=== PATIENT | female | born 1995 | race Caucasian/White ===

== ENCOUNTER → 2017-07-17 | Outpatient (CLI) | payer OTHER ==
[2017-07-17 11:39] LABS: ALT 28 U/L (9-52); AST 15 U/L (14-36); Albumin 4.2 g/dL (3.5-5.0); Alkaline Phosphatase 65 U/L (38-126); Anion Gap 11 mmol/L; Blood Urea Nitrogen 15 mg/dL (7-17); Calcium 9.6 mg/dL (8.4-10.2); Carbon Dioxide 29 mmol/L (22-30); Chloride 101 mmol/L (98-107); Cholesterol 184 mg/dL (<200); Glucose 236 mg/dL (74-99); HDL Cholesterol 58 mg/dL (40-60); LDL Cholesterol,Calculated 111 mg/dL (0-99); Potassium 4.4 mmol/L (3.5-5.1); Sodium 141 mmol/L (137-145); Total Bilirubin 0.4 mg/dL (0.2-1.3); Total Protein 6.5 g/dL (6.3-8.2); Triglycerides 77 mg/dL (<150)
[2017-07-17 11:55] LABS: T4, Free (Free Thyroxine) 1.09 ng/dL (0.78-2.19)
== END | disposition home or self-care (01) ==
LOC: LABWHC1 10:34
PROVIDERS: ATTEND Internal Medicine
DX: E10.65 Type 1 diabetes mellitus with hyperglycemia (principal); E55.9 Vitamin D deficiency, unspecified
CPT/HCPCS: 36415; 80053; 80061; 82043; 82306; 82570; 83036; 84439; 84443

== ENCOUNTER → 2019-03-10 | Outpatient (CLI) | payer OTHER ==
--- NOTE | 2019-03-11 09:03 | XR ---
EXAMINATION TYPE: XR abdomen 1V DATE OF EXAM: 03/10/2019 COMPARISON: NONE HISTORY: Pain TECHNIQUE: One view abdominal series FINDINGS: The osseous structures are intact. The bowel gas pattern is nonspecific. IUD device seen in the pelv is.. IMPRESSION: 1. Nonspecific abdomen.
== END | disposition home or self-care (01) ==
LOC: RADXRMAIN 17:10
PROVIDERS: ATTEND Nurse Practitioner
DX: R10.84 Generalized abdominal pain (principal)
CPT/HCPCS: 74018

== ENCOUNTER 2019-08-25 13:14 | Emergency (ER) | payer OTHER ==
[2019-08-25 13:20] VITALS: BP 125/86; PULSE 89; RESP 18; TEMP 98.5
[2019-08-25] MEDS ORDERED: LIDOCAINE 1% INJ 10MG/ML (20 ML MDV) SQ STA (13:39)
--- NOTE | 2019-08-25 13:52 | ED ---
Wound/Laceration HPI - General Chief Complaint: Wound/Laceration Stated Complaint: lt hand lac Time Seen by Provider: 08/25/19 13:31 Source: patient, RN notes reviewed Mode of arrival: ambulatory Limitations: no limitations - History of Present Illness Initial Comments: 23-year-old female presents emergency Department with chief complaint of laceration to her left hand second digit. Patient states that she was cutting an onion when it slipped causing a laceration. Patient states she is up-to-date on her tetanus. Patient denies any decreased range of motion no paresthesias. Patient states the bleeding is controlled at this time. - Related Data Home Medications Medication Instructions Recorded Confirmed INSULIN ASPART (NovoLOG) [NovoLOG] 0 unit SQ DIRECTED 01/25/15 04/22/18 Insulin Glargine [Lantus] 40 units SQ 04/22/18 Previous Rx's Medication Instructions Recorded Clindamycin [Cleocin] 450 mg PO Q6H #28 capsule 04/30/15 Allergies Allergy/AdvReac Type Severity Reaction Status Date / Time No Known Allergies Allergy Verified 08/25/19 13:20 Review of Systems ROS Statement: Those systems with pertinent positive or pertinent negative responses have been documented in the HPI. ROS Other: All systems not noted in ROS Statement are negative. Past Medical History Past Medical History: Diabetes Mellitus History of Any Multi-Drug Resistant Organisms: None Reported Past Surgical History: Appendectomy Past Psychological History: No Psychological Hx Reported Smoking Status: Current some day smoker Past Alcohol Use History: Occasional Past Drug Use History: None Reported General Exam Limitations: no limitations General appearance: alert, in no apparent distress Head exam: Present: atraumatic, normocephalic, normal inspection Respiratory exam: Present: normal lung sounds bilaterally. Absent: respiratory distress, wheezes, rales, rhonchi, stridor Cardiovascular Exam: Present: regular rate, normal rhythm, normal heart sounds. Absent: systolic murmur, diastolic murmur, rubs, gallop, clicks Extremities exam: Present: other (Left hand second digit there is a V-shaped laceration 2 cm) Neurological exam: Present: alert, oriented X3, CN II-XII intact, reflexes normal. Absent: motor sensory deficit Skin exam: Present: warm, dry, normal color Course Vital Signs 08/25/19 13:16 Temperature 98.5 F Pulse Rate 89 Respiratory 18 Rate Blood Pressure 125/86 O2 Sat by Pulse 99 Oximetry Procedures - Laceration Laceration #1 Consent Obtained: verbal consent Indication: laceration Site: hand (Left hand second digit) Size (cm): 2 Description: flap, irregular Depth: simple, single layer Anesthetic Used: lidocaine 1%, without epi Anesthesia Technique: local infiltration Amount (mls): 3 Type of Sutures: nylon Size of Sutures: 4-0 Number of Sutures: 3 Technique: simple, interrupted Patient Tolerated Procedure: well, no complications Medical Decision Making - Medical Decision Making 23-year-old female presented for simple laceration to her digit. Patient for range of motion no tendon involvement. Patient laceration was thoroughly cleaned, closed wound Structures given return parameters were given Disposition Clinical Impression: Laceration of finger of left hand Disposition: HOME SELF-CARE Condition: Stable Instructions (If sedation given, give patient instructions): Care For Your Stitches (ED), Finger Laceration (ED) Additional Instructions: Have sutures removed in 10 days.Please return to the Emergency Department if symptoms worsen or any other concerns. Is patient prescribed a controlled substance at d/c from ED?: No Referrals: [facility] [Primary Care Provider] - 1-2 days Time of Disposition: 13:52
== END 2019-08-25 14:05 | disposition home or self-care (01) ==
LOC: EC 13:14
DX: S61.211A Laceration without foreign body of left index finger without damage to nail, initial encounter (principal); E11.9 Type 2 diabetes mellitus without complications; F17.200 Nicotine dependence, unspecified, uncomplicated; Z79.4 Long term (current) use of insulin; W27.4XXA Contact with kitchen utensil, initial encounter
CPT/HCPCS: 12001; 99282; J2001

== ENCOUNTER → 2021-03-28 | Outpatient (CLI) | payer OTHER ==
[2021-03-28 18:18] LABS: Chol/HDL Ratio 3.64 Ratio; Glucose 147 mg/dL (70-110)
[2021-03-29 10:07] LABS: C-Peptide 0.17 ng/mL (0.81-3.85)
== END | disposition home or self-care (01) ==
LOC: LABWHC1 14:19
PROVIDERS: ATTEND Family Medicine
DX: E55.9 Vitamin D deficiency, unspecified (principal); E10.65 Type 1 diabetes mellitus with hyperglycemia; L68.0 Hirsutism; R53.83 Other fatigue
CPT/HCPCS: 36415; 80061; 82043; 82306; 82570; 82947; 83036; 84402; 84403; 84439; 84443; 84681

== ENCOUNTER 2021-07-30 05:36 | Inpatient (IN) | payer OTHER ==
[2021-07-30] MEDS ORDERED: SODIUM CHLORIDE 0.9% 2,000 ML IV STA (06:15)
[2021-07-30] MEDS ORDERED: ONDANSETRON 4 MG/2 ML VIAL IVP STA (06:15)
--- NOTE | 2021-07-30 06:25 | ED ---
Nausea/Vomiting/Diarrhea HPI - General Source: patient, RN notes reviewed Mode of arrival: ambulatory Limitations: no limitations <Yohannes Mcgovern - Last Filed: 07/30/21 07:41> <Broderick Deleon - Last Filed: 07/30/21 08:05> - General Chief complaint: Nausea/Vomiting/Diarrhea Stated complaint: Vomiting Time Seen by Provider: 07/30/21 06:00 - History of Present Illness Initial comments: This a 25 year old female presents emergency from chief complaint nausea vomiting bodyaches fever. Patient states symptoms started to 3 days ago. Patient states she is known diabetic on insulin she has not checked her blood sugar recently. Patient states she has brisk nausea vomiting complains of body aches are diffuse in nature no localized abdominal pain. No chest pain or shortness of breath. She has mild nasal congestion, cough. (Yohannes Mcgovern) - Related Data Home Medications Medication Instructions Recorded Confirmed INSULIN ASPART (NovoLOG) [NovoLOG] 0 unit SQ DIRECTED 01/25/15 04/22/18 Insulin Glargine [Lantus] 40 units SQ 04/22/18 Previous Rx's Medication Instructions Recorded Clindamycin [Cleocin] 450 mg PO Q6H #28 capsule 04/30/15 Allergies Allergy/AdvReac Type Severity Reaction Status Date / Time No Known Allergies Allergy Verified 07/30/21 05:42 Review of Systems ROS Other: All systems not noted in ROS Statement are negative. <Yohannes Mcgovern - Last Filed: 07/30/21 07:41> ROS Other: All systems not noted in ROS Statement are negative. <Broderick Deleon - Last Filed: 07/30/21 08:05> ROS Statement: Those systems with pertinent positive or pertinent negative responses have been documented in the HPI. Past Medical History Past Medical History: Diabetes Mellitus History of Any Multi-Drug Resistant Organisms: None Reported Past Surgical History: Appendectomy Past Psychological History: No Psychological Hx Reported Smoking Status: Current some day smoker Past Alcohol Use History: Occasional Past Drug Use History: None Reported <Yohannes Mcgovern - Last Filed: 07/30/21 07:41> General Exam Limitations: no limitations General appearance: alert, in no apparent distress Head exam: Present: atraumatic, normocephalic, normal inspection Eye exam: Present: normal appearance, PERRL, EOMI. Absent: scleral icterus, conjunctival injection, periorbital swelling ENT exam: Present: normal exam, mucous membranes moist Neck exam: Present: normal inspection, full ROM. Absent: tenderness, meningismus, lymphadenopathy Respiratory exam: Present: normal lung sounds bilaterally. Absent: respiratory distress, wheezes, rales, rhonchi, stridor Cardiovascular Exam: Present: regular rate, normal rhythm, normal heart sounds. Absent: systolic murmur, diastolic murmur, rubs, gallop, clicks GI/Abdominal exam: Present: soft, tenderness, normal bowel sounds. Absent: distended, guarding, rebound, rigid Neurological exam: Present: alert, oriented X3 Skin exam: Present: warm, dry, intact, normal color. Absent: rash <Yohannes Mcgovern - Last Filed: 07/30/21 07:41> Course Vital Signs 07/30/21 07/30/21 05:42 08:00 Temperature 97.9 F Pulse Rate 107 H 104 H Respiratory 18 18 Rate Blood Pressure 117/72 132/75 O2 Sat by Pulse 98 100 Oximetry Medical Decision Making - Lab Data Result diagrams: 07/30/21 06:40 07/30/21 06:40 <Yohannes Mcgovern - Last Filed: 07/30/21 07:41> - Lab Data Result diagrams: 07/30/21 06:40 07/30/21 06:40 <Broderick Deleon - Last Filed: 07/30/21 08:05> - Medical Decision Making 25-year-old female presented for nausea vomiting. Patient's found to have glucose of 345, bicarb less than 5. Patient has pH of 6.90. Patient was started on insulin drip, IV fluid bolus, maintenance fluids. Patient will be admitted to ICU for close monitoring treatment of DKA. (Yohannes Mcgovern) Patient also examined and evaluated by myself, Dr. Deleon. Patient resting comfortably in bed. Labs and ABG reviewed. Patient updated. Case was discussed with Dr. Patton who will admit to ICU. I do agree with PA findings. This includes diagnostic interpretation and treatment plan. (Broderick Deleon) - Lab Data Lab Results 07/30/21 07/30/21 07/30/21 Range/Units 06:40 06:40 06:40 WBC 6.9 (3.8-10.6) k/uL RBC 5.29 (3.80-5.40) m/uL Hgb 16.3 H (11.4-16.0) gm/dL Hct 53.1 H (34.0-46.0) % MCV 100.4 H (80.0-100.0) fL MCH 30.9 (25.0-35.0) pg MCHC 30.7 L (31.0-37.0) g/dL RDW 12.1 (11.5-15.5) % Plt Count 221 (150-450) k/uL MPV 9.2 Neutrophils % 68 % Lymphocytes % 19 % Monocytes % 8 % Eosinophils % 0 % Basophils % 2 % Neutrophils # 4.7 (1.3-7.7) k/uL Lymphocytes # 1.3 (1.0-4.8) k/uL Monocytes # 0.5 (0-1.0) k/uL Eosinophils # 0.0 (0-0.7) k/uL Basophils # 0.2 (0-0.2) k/uL Sodium 133 L (137-145) mmol/L Potassium 5.1 (3.5-5.1) mmol/L Chloride 101 (98-107) mmol/L Carbon Dioxide <5 L* (22-30) mmol/L Anion Gap mmol/L BUN 11 (7-17) mg/dL Creatinine 0.96 (0.52-1.04) mg/dL Est GFR (CKD-EPI)AfAm >90 (>60 ml/min/1.73 sqM) Est GFR (CKD-EPI)NonAf 82 (>60 ml/min/1.73 sqM) Glucose 345 H (74-99) mg/dL Calcium 9.0 (8.4-10.2) mg/dL Total Bilirubin 0.5 (0.2-1.3) mg/dL AST 21 (14-36) U/L ALT 15 (4-34) U/L Alkaline Phosphatase 122 (38-126) U/L Total Protein 7.9 (6.3-8.2) g/dL Albumin 5.0 (3.5-5.0) g/dL Amylase 39 (30-110) U/L Lipase 50 (23-300) U/L Acetone, Qual Positive (Negative) Coronavirus (PCR) (Not Detectd) Influenza Type A RNA Not Detected (Not Detectd) Influenza Type B (PCR) Not Detected (Not Detectd) 07/30/21 Range/Units 06:40 WBC (3.8-10.6) k/uL RBC (3.80-5.40) m/uL Hgb (11.4-16.0) gm/dL Hct (34.0-46.0) % MCV (80.0-100.0) fL MCH (25.0-35.0) pg MCHC (31.0-37.0) g/dL RDW (11.5-15.5) % Plt Count (150-450) k/uL MPV Neutrophils % % Lymphocytes % % Monocytes % % Eosinophils % % Basophils % % Neutrophils # (1.3-7.7) k/uL Lymphocytes # (1.0-4.8) k/uL Monocytes # (0-1.0) k/uL Eosinophils # (0-0.7) k/uL Basophils # (0-0.2) k/uL Sodium (137-145) mmol/L Potassium (3.5-5.1) mmol/L Chloride (98-107) mmol/L Carbon Dioxide (22-30) mmol/L Anion Gap mmol/L BUN (7-17) mg/dL Creatinine (0.52-1.04) mg/dL Est GFR (CKD-EPI)AfAm (>60 ml/min/1.73 sqM) Est GFR (CKD-EPI)NonAf (>60 ml/min/1.73 sqM) Glucose (74-99) mg/dL Calcium (8.4-10.2) mg/dL Total Bilirubin (0.2-1.3) mg/dL AST (14-36) U/L ALT (4-34) U/L Alkaline Phosphatase (38-126) U/L Total Protein (6.3-8.2) g/dL Albumin (3.5-5.0) g/dL Amylase (30-110) U/L Lipase (23-300) U/L Acetone, Qual (Negative) Coronavirus (PCR) Not Detected (Not Detectd) Influenza Type A RNA (Not Detectd) Influenza Type B (PCR) (Not Detectd) Critical Care Time Critical Care Time: Yes Total Critical Care Time: 35 <Dedoe,Yohannes M - Last Filed: 07/30/21 07:41> Disposition Time of Disposition: 07:35 <Yohannes Mcgovern - Last Filed: 07/30/21 07:41> <Broderick Deleon - Last Filed: 07/30/21 08:05> Clinical Impression: DKA (diabetic ketoacidosis) Disposition: ADMITTED IP TO THIS HOSP Condition: Serious
[2021-07-30] MEDS ORDERED: KETOROLAC 15 MG/ML 1 ML VIAL IVP STA ×2 (06:27→09:57)
[2021-07-30 06:50] LABS: Basophils # (A) 0.2 k/uL (0-0.2); Basophils % (A) 2 %; Eosinophils % (A) 0 %; HCT 53.1 % (34.0-46.0); HGB 16.3 gm/dL (11.4-16.0); Lymphocytes # (A) 1.3 k/uL (1.0-4.8); Lymphocytes % (A) 19 %; MCH 30.9 pg (25.0-35.0); MCHC 30.7 g/dL (31.0-37.0); MCV 100.4 fL (80.0-100.0); Mean Platelet Volume 9.2; Monocytes # (A) 0.5 k/uL (0-1.0); Monocytes % (A) 8 %; Neutrophils # (A) 4.7 k/uL (1.3-7.7); Neutrophils % (A) 68 %; Platelet Count 221 k/uL (150-450); RBC 5.29 m/uL (3.80-5.40); RDW 12.1 % (11.5-15.5); WBC 6.9 k/uL (3.8-10.6)
[2021-07-30 07:04] LABS: ALT 15 U/L (4-34); AST 21 U/L (14-36); African American GFR (CKD) >90 (>60 ml/min/1.73 sqM); Alkaline Phosphatase 122 U/L (38-126); Amylase 39 U/L (30-110); Blood Urea Nitrogen 11 mg/dL (7-17); Chloride 101 mmol/L (98-107); Glucose 345 mg/dL (74-99); Lipase 50 U/L (23-300); Non-African American GFR(CKD) 82 (>60 ml/min/1.73 sqM); Potassium 5.1 mmol/L (3.5-5.1); Sodium 133 mmol/L (137-145); Total Bilirubin 0.5 mg/dL (0.2-1.3); Total Protein 7.9 g/dL (6.3-8.2)
[2021-07-30 07:06] LABS: Carbon Dioxide <5 mmol/L (22-30)
[2021-07-30 07:39] LABS: Glucose,Whole Blood 381 mg/dL (75-99)
[2021-07-30] MEDS: INSULIN REGULAR 100 UNIT in SODIUM CHLORIDE 0.9% 100 ML IV SCH ×2 (07:42→16:13)
[2021-07-30 07:46] LABS: Allen Test Performed? Yes
[2021-07-30 08:14] LABS: Amorphous Sediment,Urine Rare /hpf; Appearance,Urine Clear (Clear); Bacteria,Urine Occasional /hpf; Bilirubin,Urine Negative (Negative); Blood,Urine Small (Negative); Color,Urine Colorless; Glucose,Urine (UA) 4+ (Negative); Hyaline Casts,Urine 3 /lpf (0-2); Leukocyte Esterase,Urine Negative (Negative); Mucus,Urine Rare /hpf; Nitrite,Urine Negative (Negative); PH, Urine 5.5 (5.0-8.0); Protein,Urine 2+ (Negative); RBC,Urine 2 /hpf (0-5); Specific Gravity,Urine 1.022 (1.001-1.035); Squamous Epithelial Cell,Urine 2 /hpf (0-4); Urobilinogen,Urine <2.0 mg/dL (<2.0); WBC,Urine 2 /hpf (0-5)
[2021-07-30 08:17] LABS: Ketones,Urine 4+ (Negative)
[2021-07-30 09:03] LABS: Glucose,Whole Blood 278 mg/dL (75-99)
--- NOTE | 2021-07-30 09:04 | P.CNPUL ---
History of Present Illness Consult date: 07/30/21 Chief complaint: Generalized weakness, hyperglycemia History of present illness: 25-year-old female patient, came into the emergency department with nausea and emesis and body aches and fever. The patient has been having symptoms for the past 3 days. The patient is diabetic and she is maintained on Lantus insulin 40 units along with NovoLog sliding scale coverage. She has not checked her blood sugars recently. Immediately, it emergency, the patient was found to be in DKA. She was afebrile and she was hemodynamically stable. The electrolytes showed a sugar of 345, serum bicarb level less than 5 and the sodium level was at 133. The patient's anion gap was 27. The liver function tests were essentially within normal limits. Sodium level was at 133 with a potassium level of 5.1. UA showed +2 protein, +4 glucose, plus for ketones, and the serum acetone was positive. The white cell count was at 6.9 with a hemoglobin of 16.8 and a platelet count of 221. COVID 19 testing was negative. Influenza screen was negative. Chest x-ray was not done. EKG was not done. The patient was given IV fluids and the patient has already received 1 L bolus of normal saline. We are going to immediately given a second liter and the patient will be maintained on normal saline at the rate of 200 mL an hour. She is currently on insulin drip at 6 units an hour. She is hemodynamically stable. She is afebrile. She is communicating. She is awake. The patient has not taken insulin for around 2 days. She missed her insulin as the patient was having nausea and emesis. Currently the abdomen is soft and she doesn't have any abdominal pain or tenderness. LFTs are within normal limits. Amylase and lipase are also within normal limits. Review of Systems Constitutional: Reports daytime sleepiness, Reports weakness Eyes: denies as per HPI, denies blurred vision, denies bulging eye, denies decreased vision, denies diplopia, denies discharge, denies dry eye, denies irr itation, denies itching, denies pain, denies photophobia, denies loss of peripheral vision, denies loss of vision, denies tunnel vision/blind spots Ears: deny: decreased hearing, ear discharge, earache, tinnitus Ears, nose, mouth and throat: Reports as per HPI Breasts: absent: as per HPI, change in shape, gynecomastia, masses, nipple discharge, pain, skin changes, swelling Cardiovascular: Reports as per HPI Respiratory: Reports as per HPI Gastrointestinal: Reports as per HPI, Reports nausea, Reports vomiting Genitourinary: Reports as per HPI Menstruation: Reports as per HPI Musculoskeletal: absent: ankle pain, ankle stiffness, ankle swelling Integumentary: Reports as per HPI Neurological: Reports as per HPI Psychiatric: Reports as per HPI Endocrine: Reports high blood sugars Hematologic/Lymphatic: Reports as per HPI Allergic/Immunologic: Reports as per HPI Past Medical History Past Medical History: Diabetes Mellitus History of Any Multi-Drug Resistant Organisms: None Reported Past Surgical History: Appendectomy Past Psychological History: No Psychological Hx Reported Smoking Status: Current some day smoker Past Alcohol Use History: Occasional Past Drug Use History: None Reported Medications and Allergies Home Medications Medication Instructions Recorded Confirmed Type INSULIN ASPART (NovoLOG) [NovoLOG] 0 unit SQ DIRECTED 01/25/15 04/22/18 History Clindamycin [Cleocin] 450 mg PO Q6H #28 capsule 04/30/15 05/03/15 Rx Insulin Glargine [Lantus] 40 units SQ 04/22/18 History Allergies Allergy/AdvReac Type Severity Reaction Status Date / Time No Known Allergies Allergy Verified 07/30/21 05:42 Physical Exam Vitals: Vital Signs Temp Pulse Resp BP Pulse Ox 07/30/21 08:00 104 H 18 132/75 100 07/30/21 05:42 97.9 F 107 H 18 117/72 98 Intake and Output 07/29/21 07/30/21 07/30/21 22:59 06:59 14:59 Other: Weight 65.771 kg Gen. appearance the patient is calm and comfortable she is currently on room air oxygen. Slightly tachypneic. The patient appeared well nourished and normally developed. Vital signs as do cumented. Head exam is unremarkable. No scleral icterus or corneal arcus noted. Neck is without jugular venous distension, thyromegaly, or carotid bruits. Carotid upstrokes are brisk bilaterally. Lungs are clear to auscultation and percussion. Cardiac exam reveals the PMI to be normally sized and situated. Rhythm is regular. First and second heart sounds normal. No murmurs, rubs or gallops. Abdominal exam reveals normal bowel sounds, no masses, no organomegaly and no aortic enlargement. Extremities are nonedematous and both femoral and pedal pulses are normal.Examination of the skin revealed no evidence of significant rashes, suspicious appearing nevi or other concerning lesions.Neurologically, the patient is awake and alert and the patient does not have any focal neurological deficit. Cranial nerves are essentially intact. Results - Laboratory Findings CBC and BMP: 07/30/21 06:40 07/30/21 06:40 Abnormal lab findings: Abnormal Labs 07/30/21 07/30/21 07/30/21 06:40 06:40 07:37 Hgb 16.3 H Hct 53.1 H MCV 100.4 H MCHC 30.7 L Sodium 133 L Carbon Dioxide <5 L* Glucose 345 H POC Glucose (mg/dL) 381 H Urine Protein Urine Glucose (UA) Urine Ketones Urine Blood Amorphous Sediment Urine Bacteria Hyaline Casts Urine Mucus 07/30/21 08:01 Hgb Hct MCV MCHC Sodium Carbon Dioxide Glucose POC Glucose (mg/dL) Urine Protein 2+ H Urine Glucose (UA) 4+ H Urine Ketones 4+ H Urine Blood Small H Amorphous Sediment Rare H Urine Bacteria Occasional H Hyaline Casts 3 H Urine Mucus Rare H Assessment and Plan Plan: Diabetic ketoacidosis Severe anion gap metabolic acidosis Type 1 diabetes mellitus maintained on Lantus insulin now patient basis Generalized weakness and dehydration secondary to above Nausea and emesis without any acute intra-abdominal pathology. LFTs are normal. Amylase and lipase are within normal limits and the patient has a benign abdominal exam Plan Complete the second liter normal saline bolus to be followed by normal saline infusion 200 mL an hour Insulin drip at 6 units an hour and follow the DKA protocol Hourly blood sugar monitoring Electrolytes every 4 hours IV Protonix IV Zofran for nausea Heparin subcu for DVT prophylaxis Check hemoglobin A1c Chest x-ray UDS We'll continue to follow.
[2021-07-30 09:08] LABS: ABG PO2 133 mmHg (83-108)
[2021-07-30] MEDS ORDERED: ONDANSETRON 4 MG/2 ML VIAL IVP PRN (09:19)
[2021-07-30 09:39] LABS: ABG Oxygen Saturation 97.5 % (94-97)
[2021-07-30] MEDS: HEPARIN SODIUM,PORCINE/PF 5,000 UNIT/0.5 ML SYRINGE SQ SCH ×2 (09:55→17:16)
[2021-07-30] MEDS: SODIUM CHLORIDE 0.9% 1,000 ML IV SCH ×2 (09:55→10:13)
[2021-07-30] MEDS: PANTOPRAZOLE 40 MG/10 ML VIAL IVP SCH ×2 (09:55→20:31)
--- NOTE | 2021-07-30 09:55 | XR ---
EXAMINATION TYPE: XR chest 1V portable DATE OF EXAM: 07/30/2021 COMPARISON: None INDICATION: Kidney TECHNIQUE: Single frontal view of the chest is obtained. FINDINGS: The heart size is normal. The pulmonary vasculature is normal. The lungs are clear. IMPRESSION: 1. No acute pulmonary process.
[2021-07-30 10:01] LABS: Glucose,Whole Blood 232 mg/dL (75-99)
[2021-07-30] MEDS: D5-0.45% NACL WITH KCL 20MEQ/L 1,000 ML IV SCH ×3 (10:15→22:13)
--- NOTE | 2021-07-30 10:40 | P.HPIM ---
History of Present Illness H&P Date: 07/30/21 Chief Complaint: Nausea Patient is a 25-year-old female who comes into the hospital with chief complaints of body aches as well as nausea. Patient reports that she's been having symptoms for the past 3 days. She reports that she has been sleeping all day for the past 2 days and has not taken any of her insulin. Patient does have type 1 diabetes and currently is on home dose of Lantus 40 units along with NovoLog sliding scale. Patient has not been checking her blood sugars and has not been taking her insulin. Patient was admitted to the hospital and found to be in severe DKA. Patient is being admitted to the intensive care unit for management. Patient denies any complaints of shortness of breath cough fevers chills. She does complain of generalized nausea as well as some emesis. No reports of hematochezia hematemesis Review of Systems A full complete 12 point review of system was conducted and pertinent positives and negatives noted in HPI Past Medical History Past Medical History: Diabetes Mellitus History of Any Multi-Drug Resistant Organisms: None Reported Past Surgical History: Appendectomy Past Psychological History: No Psychological Hx Reported Smoking Status: Current some day smoker Past Alcohol Use History: Occasional Past Drug Use History: None Reported Medications and Allergies Home Medications Medication Instructions Recorded Confirmed Type INSULIN ASPART (NovoLOG) [NovoLOG] 0 unit SQ DIRECTED 01/25/15 04/22/18 History Clindamycin [Cleocin] 450 mg PO Q6H #28 capsule 04/30/15 05/03/15 Rx Insulin Glargine [Lantus] 40 units SQ 04/22/18 History Allergies Allergy/AdvReac Type Severity Reaction Status Date / Time No Known Allergies Allergy Verified 07/30/21 05:42 Physical Exam Osteopathic Statement: *. No significant issues noted on an osteopathic structural exam other than those noted in the History and Physical/Consult. Vitals: Vital Signs Temp Pulse Resp BP Pulse Ox 07/30/21 10:00 93 17 115/82 99 07/30/21 09:00 98.3 F 103 H 15 144/91 99 07/30/21 08:57 98 07/30/21 08:00 104 H 18 132/75 100 07/30/21 05:42 97.9 F 107 H 18 117/72 98 Intake and Output 07/29/21 07/30/2122 22:59 06:59 14:59 Intake Total 1999 Balance 1999 Intake: IV 1999 Sodium Chloride 0.9% 2, 2000 000 ml @ 999 mls/hr IV . Q2H1M STA Rx#:[id number] Other: # Voids 0 Weight 65.771 kg - Constitutional General appearance: average body habitus, no acute distress - EENT Eyes: PERRLA Ears: bilateral: normal - Respiratory Respiratory: negative: CTA - Cardiovascular Rhythm: regular Heart sounds: normal: S1, S2 - Gastrointestinal General gastrointestinal: normal bowel sounds, soft Results CBC & Chem 7: 07/30/21 06:40 07/30/21 06:40 Labs: Abnormal Lab Results - Last 24 Hours (Table) 07/30/21 07/30/21 07/30/21 Range/Units 06:40 06:40 07:33 Hgb 16.3 H (11.4-16.0) gm/dL Hct 53.1 H (34.0-46.0) % MCV 100.4 H (80.0-100.0) fL MCHC 30.7 L (31.0-37.0) g/dL ABG pH 6.98 L* (7.35-7.45) ABG pCO2 <15 L* (35-45) mmHg ABG pO2 133 H (83-108) mmHg ABG O2 Saturation 97.5 H (94-97) % Sodium 133 L (137-145) mmol/L Carbon Dioxide <5 L* (22-30) mmol/L Glucose 345 H (74-99) mg/dL POC Glucose (mg/dL) (75-99) mg/dL Urine Protein (Negative) Urine Glucose (UA) (Negative) Urine Ketones (Negative) Urine Blood (Negative) Amorphous Sediment (None) /hpf Urine Bacteria (None) /hpf Hyaline Casts (0-2) /lpf Urine Mucus (None) /hpf 07/30/21 07/30/21 07/30/21 Range/Units 07:37 08:01 09:00 Hgb (11.4-16.0) gm/dL Hct (34.0-46.0) % MCV (80.0-100.0) fL MCHC (31.0-37.0) g/dL ABG pH (7.35-7.45) ABG pCO2 (35-45) mmHg ABG pO2 (83-108) mmHg ABG O2 Saturation (94-97) % Sodium (137-145) mmol/L Carbon Dioxide (22-30) mmol/L Glucose (74-99) mg/dL POC Glucose (mg/dL) 381 H 278 H (75-99) mg/dL Urine Protein 2+ H (Negative) Urine Glucose (UA) 4+ H (Negative) Urine Ketones 4+ H (Negative) Urine Blood Small H (Negative) Amorphous Sediment Rare H (None) /hpf Urine Bacteria Occasional H (None) /hpf Hyaline Casts 3 H (0-2) /lpf Urine Mucus Rare H (None) /hpf 07/30/21 Range/Units 09:59 Hgb (11.4-16.0) gm/dL Hct (34.0-46.0) % MCV (80.0-100.0) fL MCHC (31.0-37.0) g/dL ABG pH (7.35-7.45) ABG pCO2 (35-45) mmHg ABG pO2 (83-108) mmHg ABG O2 Saturation (94-97) % Sodium (137-145) mmol/L Carbon Dioxide (22-30) mmol/L Glucose (74-99) mg/dL POC Glucose (mg/dL) 232 H (75-99) mg/dL Urine Protein (Negative) Urine Glucose (UA) (Negative) Urine Ketones (Negative) Urine Blood (Negative) Amorphous Sediment (None) /hpf Urine Bacteria (None) /hpf Hyaline Casts (0-2) /lpf Urine Mucus (None) /hpf Assessment and Plan (1) DKA (diabetic ketoacidosis) Current Visit: Yes Status: Acute Code(s): E11.10 - TYPE 2 DIABETES MELLITUS WITH KETOACIDOSIS WITHOUT COMA SNOMED Code(s): 121175547 Plan: DKA Type 1 diabetes mellitus Severe anion gap metabolic acidosis Patient presents to the hospital with severe anion gap metabolic acidosis of a bicarb less than 5. Patient's ABG reveals a pH of 6.98. Patient alert and responsive and answering questions appropriately. Patient was started on DKA protocol including insulin gtt. and IV fluids. Patient is being admitted to the intensive care unit. -Insulin gtt. -IV fluids -Continue every 4 electrolytes, hourly POC, Nausea/emesis -Likely secondary to DKA. LFTs are within normal. -Continue with supportive care GI DVT prophylaxis: Heparin subcu, Protonix Disposition: Patient is being admitted to the intensive care unit with consultation to ICU care team.
[2021-07-30 10:54] LABS: Glucose,Whole Blood 238 mg/dL (75-99)
[2021-07-30 12:04] LABS: African American GFR (CKD) >90 (>60 ml/min/1.73 sqM); Blood Urea Nitrogen 11 mg/dL (7-17); Chloride 109 mmol/L (98-107); Glucose 227 mg/dL (74-99); Non-African American GFR(CKD) >90 (>60 ml/min/1.73 sqM); Phosphorus 3.5 mg/dL (2.5-4.5); Potassium 4.9 mmol/L (3.5-5.1); Sodium 135 mmol/L (137-145)
[2021-07-30 12:05] LABS: Carbon Dioxide <5 mmol/L (22-30)
[2021-07-30 12:05] LABS: Glucose,Whole Blood 240 mg/dL (75-99)
[2021-07-30 13:13] LABS: Glucose,Whole Blood 178 mg/dL (75-99)
[2021-07-30 14:29] LABS: Glucose,Whole Blood 215 mg/dL (75-99)
[2021-07-30 15:05] LABS: African American GFR (CKD) >90 (>60 ml/min/1.73 sqM); Anion Gap 12 mmol/L; Blood Urea Nitrogen 8 mg/dL (7-17); Carbon Dioxide 11 mmol/L (22-30); Chloride 110 mmol/L (98-107); Glucose 189 mg/dL (74-99); Non-African American GFR(CKD) >90 (>60 ml/min/1.73 sqM); Phosphorus 2.1 mg/dL (2.5-4.5); Potassium 4.7 mmol/L (3.5-5.1); Sodium 133 mmol/L (137-145)
[2021-07-30 15:13] LABS: Glucose,Whole Blood 187 mg/dL (75-99)
[2021-07-30 16:14] LABS: Glucose,Whole Blood 167 mg/dL (75-99)
[2021-07-30 17:20] LABS: Glucose,Whole Blood 165 mg/dL (75-99)
[2021-07-30 18:42] LABS: Urine Alcohol Negative (Negative); Urine Barbiturate Negative (Negative); Urine Cocaine Negative (Negative); Urine Methadone Negative (Negative); Urine Opiates Negative (Negative); Urine Phencyclidine Negative (Negative)
[2021-07-30 18:42] LABS: Glucose,Whole Blood 127 mg/dL (75-99)
[2021-07-30 18:55] LABS: ALT 12 U/L (4-34); AST 19 U/L (14-36); African American GFR (CKD) >90 (>60 ml/min/1.73 sqM); Albumin 3.7 g/dL (3.5-5.0); Alkaline Phosphatase 81 U/L (38-126); Anion Gap 9 mmol/L; Blood Urea Nitrogen 7 mg/dL (7-17); Calcium 8.1 mg/dL (8.4-10.2); Carbon Dioxide 14 mmol/L (22-30); Chloride 110 mmol/L (98-107); Glucose 142 mg/dL (74-99); Non-African American GFR(CKD) >90 (>60 ml/min/1.73 sqM); Potassium 4.2 mmol/L (3.5-5.1); Sodium 133 mmol/L (137-145); Total Bilirubin 0.3 mg/dL (0.2-1.3); Total Protein 6.2 g/dL (6.3-8.2)
[2021-07-30 19:57] LABS: Glucose,Whole Blood 103 mg/dL (75-99)
[2021-07-30 21:04] LABS: Glucose,Whole Blood 160 mg/dL (75-99)
[2021-07-30 22:18] LABS: Glucose,Whole Blood 140 mg/dL (75-99)
[2021-07-30 22:51] LABS: ALT 11 U/L (4-34); AST 20 U/L (14-36); African American GFR (CKD) >90 (>60 ml/min/1.73 sqM); Albumin 3.7 g/dL (3.5-5.0); Alkaline Phosphatase 85 U/L (38-126); Anion Gap 12 mmol/L; Blood Urea Nitrogen 7 mg/dL (7-17); Calcium 8.3 mg/dL (8.4-10.2); Carbon Dioxide 14 mmol/L (22-30); Chloride 108 mmol/L (98-107); Glucose 140 mg/dL (74-99); Non-African American GFR(CKD) >90 (>60 ml/min/1.73 sqM); Potassium 4.2 mmol/L (3.5-5.1); Sodium 134 mmol/L (137-145); Total Bilirubin 0.3 mg/dL (0.2-1.3); Total Protein 6.3 g/dL (6.3-8.2)
[2021-07-30 23:02] LABS: Glucose,Whole Blood 156 mg/dL (75-99)
[2021-07-31 00:05] LABS: Glucose,Whole Blood 173 mg/dL (75-99)
[2021-07-31] MEDS: HEPARIN SODIUM,PORCINE/PF 5,000 UNIT/0.5 ML SYRINGE SQ SCH ×4 (00:05→23:16)
[2021-07-31 01:12] LABS: Glucose,Whole Blood 215 mg/dL (75-99)
[2021-07-31 02:11] LABS: Glucose,Whole Blood 220 mg/dL (75-99)
[2021-07-31 02:16] LABS: ALT 10 U/L (4-34); AST 20 U/L (14-36); African American GFR (CKD) >90 (>60 ml/min/1.73 sqM); Albumin 3.4 g/dL (3.5-5.0); Alkaline Phosphatase 72 U/L (38-126); Anion Gap 9 mmol/L; Blood Urea Nitrogen 6 mg/dL (7-17); Calcium 8.1 mg/dL (8.4-10.2); Carbon Dioxide 13 mmol/L (22-30); Chloride 110 mmol/L (98-107); Glucose 225 mg/dL (74-99); Non-African American GFR(CKD) >90 (>60 ml/min/1.73 sqM); Sodium 132 mmol/L (137-145); Total Bilirubin 0.3 mg/dL (0.2-1.3); Total Protein 5.8 g/dL (6.3-8.2)
[2021-07-31 03:05] LABS: Glucose,Whole Blood 235 mg/dL (75-99)
[2021-07-31 04:07] LABS: Glucose,Whole Blood 252 mg/dL (75-99)
[2021-07-31 05:01] LABS: Glucose,Whole Blood 257 mg/dL (75-99)
[2021-07-31] MEDS: D5-0.45% NACL WITH KCL 20MEQ/L 1,000 ML IV SCH ×3 (05:01→14:53)
[2021-07-31 05:56] LABS: Glucose,Whole Blood 224 mg/dL (75-99)
[2021-07-31 06:51] LABS: Glucose,Whole Blood 222 mg/dL (75-99)
[2021-07-31 07:42] LABS: HCT 41.8 % (34.0-46.0); MCH 31.6 pg (25.0-35.0); MCHC 33.5 g/dL (31.0-37.0); Mean Platelet Volume 8.2; Platelet Count 178 k/uL (150-450); RBC 4.43 m/uL (3.80-5.40); RDW 12.9 % (11.5-15.5); WBC 3.6 k/uL (3.8-10.6)
[2021-07-31 07:58] LABS: ALT 11 U/L (4-34); AST 20 U/L (14-36); African American GFR (CKD) >90 (>60 ml/min/1.73 sqM); Albumin 3.4 g/dL (3.5-5.0); Alkaline Phosphatase 81 U/L (38-126); Anion Gap 8 mmol/L; Blood Urea Nitrogen 5 mg/dL (7-17); Calcium 8.3 mg/dL (8.4-10.2); Carbon Dioxide 16 mmol/L (22-30); Chloride 110 mmol/L (98-107); Glucose 198 mg/dL (74-99); Non-African American GFR(CKD) >90 (>60 ml/min/1.73 sqM); Potassium 3.8 mmol/L (3.5-5.1); Sodium 134 mmol/L (137-145); Total Bilirubin 0.3 mg/dL (0.2-1.3); Total Protein 5.8 g/dL (6.3-8.2)
[2021-07-31 08:01] LABS: MCV 94.3 fL (80.0-100.0)
[2021-07-31] MEDS: PANTOPRAZOLE 40 MG/10 ML VIAL IVP SCH ×2 (08:32→21:38)
[2021-07-31 08:33] LABS: Glucose,Whole Blood 178 mg/dL (75-99)
--- NOTE | 2021-07-31 08:57 | P.PN ---
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 On today's evaluation, the patient is still on insulin drip which is running at 2.2 ML's an hour and the patient is also on D5 half- normal saline running at the rate of 150 mL an hour. Most recent blood sugar is 178. The morning electrolytes show that the patient's serum bicarbonate 16. Nevertheless, her anion gap has closed. The patient is doing well. Sinus tachycardia has recovered. No nausea. No emesis. No abdominal pain. No chest pain. Heart irregular rhythm is sinus. Sodium is at 134 with a potassium level of 3.8. BUN is at 5 with a creatinine of 0.4. White cell count is at 3.6 with a hemoglobin of 14. The chest x-ray that was done yesterday showed no acute abnormalities. Lungs were adequately expanded on both sides. As such, the patient has done extremely well over the past 24 hours. No other significant events. Neurologically, she is fully alert and awake and she is hungry Objective - Vital Signs Vital signs: Vital Signs Temp 98.1 F 07/31/21 08:00 Pulse 87 07/31/21 08:00 Resp 16 07/31/21 08:00 BP 102/75 07/31/21 08:00 Pulse Ox 97 07/31/21 08:00 FiO2 Intake & Output 07/30/21 07/31/21 07/31/21 18:59 06:59 18:59 Intake Total 3272.962 1964.770 150 Output Total 800 850 Balance 2472.962 1114.770 150 Weight 65.771 kg 67.9 kg Intake: IV 3200 1950 150 D5-0.45% NaCl with KCl 1200 1950 150 20Meq/l 1,000 ml @ 150 mls/hr IV .Q6H40M [facility] Rx# :[id number] Sodium Chloride 0.9% 2, 2000 000 ml @ 999 mls/hr IV . Q2H1M [facility] Rx#:[id number] Intake, IV Titration 72.962 14.770 Amount Insulin Regular 100 unit 72.962 14.770 In Sodium Chloride 0.9% 100 ml @ 0.1 UNITS/KG/HR 6.643 mls/hr IV .[id number] [facility] Rx#:[id number] Output: Urine 800 850 Other: Voiding Method Toilet Toilet # Voids 1 0 0 # Bowel Movements 1 - Exam The patient appeared well nourished and normally developed. Vital signs as do cumented. Head exam is unremarkable. No scleral icterus or corneal arcus noted. Neck is without jugular venous distension, thyromegaly, or carotid bruits. Carotid upstrokes are brisk bilaterally. Lungs are clear to auscultation and percussion. Cardiac exam reveals the PMI to be normally sized and situated. Rhythm is regular. First and second heart sounds normal. No murmurs, rubs or gallops. Abdominal exam reveals normal bowel sounds, no masses, no organomegaly and no aortic enlargement. Extremities are nonedematous and both femoral and pedal pulses are normal. - Labs CBC & Chem 7: 07/31/21 07:01 07/31/21 07:01 Labs: Abnormal Lab Results - Last 24 Hours (Table) 07/30/21 07/30/21 07/30/21 Range/Units 06:40 07:33 09:00 WBC (3.8-10.6) k/uL ABG pH 6.98 L* (7.35-7.45) ABG pCO2 <15 L* (35-45) mmHg ABG pO2 133 H (83-108) mmHg ABG O2 Saturation 97.5 H (94-97) % Sodium (137-145) mmol/L Chloride (98-107) mmol/L Carbon Dioxide (22-30) mmol/L BUN (7-17) mg/dL Creatinine (0.52-1.04) mg/dL Glucose (74-99) mg/dL POC Glucose (mg/dL) 278 H (75-99) mg/dL Hemoglobin A1c 10.9 H (0.0-6.0) % Calcium (8.4-10.2) mg/dL Phosphorus (2.5-4.5) mg/dL Total Protein (6.3-8.2) g/dL Albumin (3.5-5.0) g/dL 07/30/21 07/30/21 07/30/21 Range/Units 09:59 10:52 10:54 WBC (3.8-10.6) k/uL ABG pH (7.35-7.45) ABG pCO2 (35-45) mmHg ABG pO2 (83-108) mmHg ABG O2 Saturation (94-97) % Sodium 135 L (137-145) mmol/L Chloride 109 H (98-107) mmol/L Carbon Dioxide <5 L* (22-30) mmol/L BUN (7-17) mg/dL Creatinine (0.52-1.04) mg/dL Glucose 227 H (74-99) mg/dL POC Glucose (mg/dL) 232 H 238 H (75-99) mg/dL Hemoglobin A1c (0.0-6.0) % Calcium (8.4-10.2) mg/dL Phosphorus (2.5-4.5) mg/dL Total Protein (6.3-8.2) g/dL Albumin (3.5-5.0) g/dL 07/30/21 07/30/21 07/30/21 Range/Units 12:03 13:12 14:27 WBC (3.8-10.6) k/uL ABG pH (7.35-7.45) ABG pCO2 (35-45) mmHg ABG pO2 (83-108) mmHg ABG O2 Saturation (94-97) % Sodium (137-145) mmol/L Chloride (98-107) mmol/L Carbon Dioxide (22-30) mmol/L BUN (7-17) mg/dL Creatinine (0.52-1.04) mg/dL Glucose (74-99) mg/dL POC Glucose (mg/dL) 240 H 178 H 215 H (75-99) mg/dL Hemoglobin A1c (0.0-6.0) % Calcium (8.4-10.2) mg/dL Phosphorus (2.5-4.5) mg/dL Total Protein (6.3-8.2) g/dL Albumin (3.5-5.0) g/dL 07/30/21 07/30/21 07/30/21 Range/Units 14:43 15:11 16:13 WBC (3.8-10.6) k/uL ABG pH (7.35-7.45) ABG pCO2 (35-45) mmHg ABG pO2 (83-108) mmHg ABG O2 Saturation (94-97) % Sodium 133 L (137-145) mmol/L Chloride 110 H (98-107) mmol/L Carbon Dioxide 11 L (22-30) mmol/L BUN (7-17) mg/dL Creatinine (0.52-1.04) mg/dL Glucose 189 H (74-99) mg/dL POC Glucose (mg/dL) 187 H 167 H (75-99) mg/dL Hemoglobin A1c (0.0-6.0) % Calcium (8.4-10.2) mg/dL Phosphorus 2.1 L (2.5-4.5) mg/dL Total Protein (6.3-8.2) g/dL Albumin (3.5-5.0) g/dL 07/30/21 07/30/21 07/30/21 Range/Units 17:18 18:11 18:41 WBC (3.8-10.6) k/uL ABG pH (7.35-7.45) ABG pCO2 (35-45) mmHg ABG pO2 (83-108) mmHg ABG O2 Saturation (94-97) % Sodium 133 L (137-145) mmol/L Chloride 110 H (98-107) mmol/L Carbon Dioxide 14 L (22-30) mmol/L BUN (7-17) mg/dL Creatinine 0.48 L (0.52-1.04) mg/dL Glucose 142 H (74-99) mg/dL POC Glucose (mg/dL) 165 H 127 H (75-99) mg/dL Hemoglobin A1c (0.0-6.0) % Calcium 8.1 L (8.4-10.2) mg/dL Phosphorus (2.5-4.5) mg/dL Total Protein 6.2 L (6.3-8.2) g/dL Albumin (3.5-5.0) g/dL 07/30/21 07/30/21 07/30/21 Range/Units 19:55 21:02 21:58 WBC (3.8-10.6) k/uL ABG pH (7.35-7.45) ABG pCO2 (35-45) mmHg ABG pO2 (83-108) mmHg ABG O2 Saturation (94-97) % Sodium 134 L (137-145) mmol/L Chloride 108 H (98-107) mmol/L Carbon Dioxide 14 L (22-30) mmol/L BUN (7-17) mg/dL Creatinine 0.47 L (0.52-1.04) mg/dL Glucose 140 H (74-99) mg/dL POC Glucose (mg/dL) 103 H 160 H (75-99) mg/dL Hemoglobin A1c (0.0-6.0) % Calcium 8.3 L (8.4-10.2) mg/dL Phosphorus (2.5-4.5) mg/dL Total Protein (6.3-8.2) g/dL Albumin (3.5-5.0) g/dL 07/30/21 07/30/21 07/31/21 Range/Units 22:17 23:01 00:04 WBC (3.8-10.6) k/uL ABG pH (7.35-7.45) ABG pCO2 (35-45) mmHg ABG pO2 (83-108) mmHg ABG O2 Saturation (94-97) % Sodium (137-145) mmol/L Chloride (98-107) mmol/L Carbon Dioxide (22-30) mmol/L BUN (7-17) mg/dL Creatinine (0.52-1.04) mg/dL Glucose (74-99) mg/dL POC Glucose (mg/dL) 140 H 156 H 173 H (75-99) mg/dL Hemoglobin A1c (0.0-6.0) % Calcium (8.4-10.2) mg/dL Phosphorus (2.5-4.5) mg/dL Total Protein (6.3-8.2) g/dL Albumin (3.5-5.0) g/dL 07/31/21 07/31/21 07/31/21 Range/Units 01:10 01:40 02:06 WBC (3.8-10.6) k/uL ABG pH (7.35-7.45) ABG pCO2 (35-45) mmHg ABG pO2 (83-108) mmHg ABG O2 Saturation (94-97) % Sodium 132 L (137-145) mmol/L Chloride 110 H (98-107) mmol/L Carbon Dioxide 13 L (22-30) mmol/L BUN 6 L (7-17) mg/dL Creatinine 0.47 L (0.52-1.04) mg/dL Glucose 225 H (74-99) mg/dL POC Glucose (mg/dL) 215 H 220 H (75-99) mg/dL Hemoglobin A1c (0.0-6.0) % Calcium 8.1 L (8.4-10.2) mg/dL Phosphorus (2.5-4.5) mg/dL Total Protein 5.8 L (6.3-8.2) g/dL Albumin 3.4 L (3.5-5.0) g/dL 07/31/21 07/31/21 07/31/21 Range/Units 03:04 04:06 04:59 WBC (3.8-10.6) k/uL ABG pH (7.35-7.45) ABG pCO2 (35-45) mmHg ABG pO2 (83-108) mmHg ABG O2 Saturation (94-97) % Sodium (137-145) mmol/L Chloride (98-107) mmol/L Carbon Dioxide (22-30) mmol/L BUN (7-17) mg/dL Creatinine (0.52-1.04) mg/dL Glucose (74-99) mg/dL POC Glucose (mg/dL) 235 H 252 H 257 H (75-99) mg/dL Hemoglobin A1c (0.0-6.0) % Calcium (8.4-10.2) mg/dL Phosphorus (2.5-4.5) mg/dL Total Protein (6.3-8.2) g/dL Albumin (3.5-5.0) g/dL 07/31/21 07/31/21 07/31/21 Range/Units 05:54 06:50 07:01 WBC 3.6 L (3.8-10.6) k/uL ABG pH (7.35-7.45) ABG pCO2 (35-45) mmHg ABG pO2 (83-108) mmHg ABG O2 Saturation (94-97) % Sodium (137-145) mmol/L Chloride (98-107) mmol/L Carbon Dioxide (22-30) mmol/L BUN (7-17) mg/dL Creatinine (0.52-1.04) mg/dL Glucose (74-99) mg/dL POC Glucose (mg/dL) 224 H 222 H (75-99) mg/dL Hemoglobin A1c (0.0-6.0) % Calcium (8.4-10.2) mg/dL Phosphorus (2.5-4.5) mg/dL Total Protein (6.3-8.2) g/dL Albumin (3.5-5.0) g/dL 07/31/21 07/31/21 Range/Units 07:01 08:31 WBC (3.8-10.6) k/uL ABG pH (7.35-7.45) ABG pCO2 (35-45) mmHg ABG pO2 (83-108) mmHg ABG O2 Saturation (94-97) % Sodium 134 L (137-145) mmol/L Chloride 110 H (98-107) mmol/L Carbon Dioxide 16 L (22-30) mmol/L BUN 5 L (7-17) mg/dL Creatinine 0.42 L (0.52-1.04) mg/dL Glucose 198 H (74-99) mg/dL POC Glucose (mg/dL) 178 H (75-99) mg/dL Hemoglobin A1c (0.0-6.0) % Calcium 8.3 L (8.4-10.2) mg/dL Phosphorus (2.5-4.5) mg/dL Total Protein 5.8 L (6.3-8.2) g/dL Albumin 3.4 L (3.5-5.0) g/dL Assessment and Plan Plan: Diabetic ketoacidosis, improving and the patient's anion gap has closed and the serum bicarb is around 16 Severe anion gap metabolic acidosis, recovered Type 1 diabetes mellitus maintained on Lantus insulin now patient basis Generalized weakness and dehydration secondary to above Nausea and emesis without any acute intra-abdominal pathology. LFTs are normal. Amylase and lipase are within normal limits and the patient has a benign abdominal exam Plan Repeat another set of electrolytes by 11 AM. If the serum bicarb is above 20, would proceed with some lunch and following that'll give the patient and her Lantus along with ice care coverage. I'm going to start on 55 units of Lantus p ag a sliding scale coverage. IV Protonix IV Zofran for nausea, when necessary Heparin subcu for DVT prophylaxis Check hemoglobin A1c, elevated at 10.9 indicating poor blood sugar control Chest x-ray is negative We'll continue to follow.
[2021-07-31 09:54] LABS: Glucose,Whole Blood 161 mg/dL (75-99)
--- NOTE | 2021-07-31 10:03 | P.PN ---
Subjective Patient was examined at bedside today not complaining of any intractable nausea or vomiting. Pending morning labs. Case discussed with RN present at bedside. Insulin drip still running. Objective - Vital Signs Vital signs: Vital Signs Temp 98.1 F 07/31/21 08:00 Pulse 96 07/31/21 09:00 Resp 18 07/31/21 09:00 BP 104/59 07/31/21 09:00 Pulse Ox 97 07/31/21 09:00 FiO2 Intake & Output 07/30/21 07/31/21 07/31/21 18:59 06:59 18:59 Intake Total 3272.962 1964.770 300 Output Total 800 850 Balance 2472.962 1114.770 300 Weight 65.771 kg 67.9 kg Intake: IV 3200 1950 300 D5-0.45% NaCl with KCl 1200 1950 300 20Meq/l 1,000 ml @ 150 mls/hr IV .Q6H40M [facility] Rx# :[id number] Sodium Chloride 0.9% 2, 2000 000 ml @ 999 mls/hr IV . Q2H1M [facility] Rx#:[id number] Intake, IV Titration 72.962 14.770 Amount Insulin Regular 100 unit 72.962 14.770 In Sodium Chloride 0.9% 100 ml @ 0.1 UNITS/KG/HR 6.643 mls/hr IV .[id number] [facility] Rx#:[id number] Output: Urine 800 850 Other: Voiding Method Toilet Toilet # Voids 1 0 0 # Bowel Movements 1 - Exam Gen. patient is awake alert oriented 3 Cardio normal S1/S2 Abdomen soft, nontender Respiratory no wheezing or rhonchi appreciated Psych patient is in good spirits - Labs CBC & Chem 7: 07/31/21 07:01 07/31/21 07:01 Labs: Abnormal Lab Results - Last 24 Hours (Table) 07/30/21 07/30/21 07/30/21 Range/Units 06:40 09:59 10:52 WBC (3.8-10.6) k/uL Sodium (137-145) mmol/L Chloride (98-107) mmol/L Carbon Dioxide (22-30) mmol/L BUN (7-17) mg/dL Creatinine (0.52-1.04) mg/dL Glucose (74-99) mg/dL POC Glucose (mg/dL) 232 H 238 H (75-99) mg/dL Hemoglobin A1c 10.9 H (0.0-6.0) % Calcium (8.4-10.2) mg/dL Phosphorus (2.5-4.5) mg/dL Total Protein (6.3-8.2) g/dL Albumin (3.5-5.0) g/dL 07/30/21 07/30/21 07/30/21 Range/Units 10:54 12:03 13:12 WBC (3.8-10.6) k/uL Sodium 135 L (137-145) mmol/L Chloride 109 H (98-107) mmol/L Carbon Dioxide <5 L* (22-30) mmol/L BUN (7-17) mg/dL Creatinine (0.52-1.04) mg/dL Glucose 227 H (74-99) mg/dL POC Glucose (mg/dL) 240 H 178 H (75-99) mg/dL Hemoglobin A1c (0.0-6.0) % Calcium (8.4-10.2) mg/dL Phosphorus (2.5-4.5) mg/dL Total Protein (6.3-8.2) g/dL Albumin (3.5-5.0) g/dL 07/30/21 07/30/21 07/30/21 Range/Units 14:27 14:43 15:11 WBC (3.8-10.6) k/uL Sodium 133 L (137-145) mmol/L Chloride 110 H (98-107) mmol/L Carbon Dioxide 11 L (22-30) mmol/L BUN (7-17) mg/dL Creatinine (0.52-1.04) mg/dL Glucose 189 H (74-99) mg/dL POC Glucose (mg/dL) 215 H 187 H (75-99) mg/dL Hemoglobin A1c (0.0-6.0) % Calcium (8.4-10.2) mg/dL Phosphorus 2.1 L (2.5-4.5) mg/dL Total Protein (6.3-8.2) g/dL Albumin (3.5-5.0) g/dL 07/30/21 07/30/21 07/30/21 Range/Units 16:13 17:18 18:11 WBC (3.8-10.6) k/uL Sodium 133 L (137-145) mmol/L Chloride 110 H (98-107) mmol/L Carbon Dioxide 14 L (22-30) mmol/L BUN (7-17) mg/dL Creatinine 0.48 L (0.52-1.04) mg/dL Glucose 142 H (74-99) mg/dL POC Glucose (mg/dL) 167 H 165 H (75-99) mg/dL Hemoglobin A1c (0.0-6.0) % Calcium 8.1 L (8.4-10.2) mg/dL Phosphorus (2.5-4.5) mg/dL Total Protein 6.2 L (6.3-8.2) g/dL Albumin (3.5-5.0) g/dL 07/30/21 07/30/21 07/30/21 Range/Units 18:41 19:55 21:02 WBC (3.8-10.6) k/uL Sodium (137-145) mmol/L Chloride (98-107) mmol/L Carbon Dioxide (22-30) mmol/L BUN (7-17) mg/dL Creatinine (0.52-1.04) mg/dL Glucose (74-99) mg/dL POC Glucose (mg/dL) 127 H 103 H 160 H (75-99) mg/dL Hemoglobin A1c (0.0-6.0) % Calcium (8.4-10.2) mg/dL Phosphorus (2.5-4.5) mg/dL Total Protein (6.3-8.2) g/dL Albumin (3.5-5.0) g/dL 07/30/21 07/30/21 07/30/21 Range/Units 21:58 22:17 23:01 WBC (3.8-10.6) k/uL Sodium 134 L (137-145) mmol/L Chloride 108 H (98-107) mmol/L Carbon Dioxide 14 L (22-30) mmol/L BUN (7-17) mg/dL Creatinine 0.47 L (0.52-1.04) mg/dL Glucose 140 H (74-99) mg/dL POC Glucose (mg/dL) 140 H 156 H (75-99) mg/dL Hemoglobin A1c (0.0-6.0) % Calcium 8.3 L (8.4-10.2) mg/dL Phosphorus (2.5-4.5) mg/dL Total Protein (6.3-8.2) g/dL Albumin (3.5-5.0) g/dL 07/31/21 07/31/21 07/31/21 Range/Units 00:04 01:10 01:40 WBC (3.8-10.6) k/uL Sodium 132 L (137-145) mmol/L Chloride 110 H (98-107) mmol/L Carbon Dioxide 13 L (22-30) mmol/L BUN 6 L (7-17) mg/dL Creatinine 0.47 L (0.52-1.04) mg/dL Glucose 225 H (74-99) mg/dL POC Glucose (mg/dL) 173 H 215 H (75-99) mg/dL Hemoglobin A1c (0.0-6.0) % Calcium 8.1 L (8.4-10.2) mg/dL Phosphorus (2.5-4.5) mg/dL Total Protein 5.8 L (6.3-8.2) g/dL Albumin 3.4 L (3.5-5.0) g/dL 07/31/21 07/31/21 07/31/21 Range/Units 02:06 03:04 04:06 WBC (3.8-10.6) k/uL Sodium (137-145) mmol/L Chloride (98-107) mmol/L Carbon Dioxide (22-30) mmol/L BUN (7-17) mg/dL Creatinine (0.52-1.04) mg/dL Glucose (74-99) mg/dL POC Glucose (mg/dL) 220 H 235 H 252 H (75-99) mg/dL Hemoglobin A1c (0.0-6.0) % Calcium (8.4-10.2) mg/dL Phosphorus (2.5-4.5) mg/dL Total Protein (6.3-8.2) g/dL Albumin (3.5-5.0) g/dL 07/31/21 07/31/21 07/31/21 Range/Units 04:59 05:54 06:50 WBC (3.8-10.6) k/uL Sodium (137-145) mmol/L Chloride (98-107) mmol/L Carbon Dioxide (22-30) mmol/L BUN (7-17) mg/dL Creatinine (0.52-1.04) mg/dL Glucose (74-99) mg/dL POC Glucose (mg/dL) 257 H 224 H 222 H (75-99) mg/dL Hemoglobin A1c (0.0-6.0) % Calcium (8.4-10.2) mg/dL Phosphorus (2.5-4.5) mg/dL Total Protein (6.3-8.2) g/dL Albumin (3.5-5.0) g/dL 07/31/21 07/31/21 07/31/21 Range/Units 07:01 07:01 08:31 WBC 3.6 L (3.8-10.6) k/uL Sodium 134 L (137-145) mmol/L Chloride 110 H (98-107) mmol/L Carbon Dioxide 16 L (22-30) mmol/L BUN 5 L (7-17) mg/dL Creatinine 0.42 L (0.52-1.04) mg/dL Glucose 198 H (74-99) mg/dL POC Glucose (mg/dL) 178 H (75-99) mg/dL Hemoglobin A1c (0.0-6.0) % Calcium 8.3 L (8.4-10.2) mg/dL Phosphorus (2.5-4.5) mg/dL Total Protein 5.8 L (6.3-8.2) g/dL Albumin 3.4 L (3.5-5.0) g/dL 07/31/21 Range/Units 09:52 WBC (3.8-10.6) k/uL Sodium (137-145) mmol/L Chloride (98-107) mmol/L Carbon Dioxide (22-30) mmol/L BUN (7-17) mg/dL Creatinine (0.52-1.04) mg/dL Glucose (74-99) mg/dL POC Glucose (mg/dL) 161 H (75-99) mg/dL Hemoglobin A1c (0.0-6.0) % Calcium (8.4-10.2) mg/dL Phosphorus (2.5-4.5) mg/dL Total Protein (6.3-8.2) g/dL Albumin (3.5-5.0) g/dL Assessment and Plan Assessment: Assessment: #1 DKA #2 diabetes mellitus type 1 #3 intractable nausea and vomiting resolved Plan: -Agree with ICU level of care -Continue to monitor daily labs and follow DKA protocol -Switch to subcutaneous insulin once blood glucose less than 200 with serum bicarbonate above 15 and calculated anion gap less than 12 per ADA guidelines -Hemoglobin A1c reviewed -Due to prophylaxis heparin
[2021-07-31] MEDS: INSULIN DETEMIR (LEVEMIR) 100 UNIT/ML SYR SQ SCH (10:11)
[2021-07-31 11:17] LABS: ALT 13 U/L (4-34); AST 26 U/L (14-36); African American GFR (CKD) >90 (>60 ml/min/1.73 sqM); Albumin 3.7 g/dL (3.5-5.0); Alkaline Phosphatase 87 U/L (38-126); Anion Gap 10 mmol/L; Blood Urea Nitrogen 5 mg/dL (7-17); Calcium 8.4 mg/dL (8.4-10.2); Carbon Dioxide 17 mmol/L (22-30); Chloride 110 mmol/L (98-107); Glucose 143 mg/dL (74-99); Non-African American GFR(CKD) >90 (>60 ml/min/1.73 sqM); Potassium 3.9 mmol/L (3.5-5.1); Sodium 137 mmol/L (137-145); Total Bilirubin 0.4 mg/dL (0.2-1.3); Total Protein 6.3 g/dL (6.3-8.2)
[2021-07-31] MEDS ORDERED: SODIUM BICARB 8.4% 50 ML SYR (1 MEQ/ML) IV STA (11:40)
[2021-07-31 11:57] VITALS: BMI 27.3
[2021-07-31 12:11] LABS: Glucose,Whole Blood 106 mg/dL (75-99)
[2021-07-31] MEDS ORDERED: guaiFENesin-DM 600/30MG 1 EACH TAB.ER.12H PO PRN (12:19)
[2021-07-31 13:15] LABS: Glucose,Whole Blood 115 mg/dL (75-99)
[2021-07-31 14:33] LABS: ALT 14 U/L (4-34); AST 28 U/L (14-36); African American GFR (CKD) >90 (>60 ml/min/1.73 sqM); Albumin 3.9 g/dL (3.5-5.0); Alkaline Phosphatase 91 U/L (38-126); Anion Gap 8 mmol/L; Blood Urea Nitrogen 4 mg/dL (7-17); Calcium 8.7 mg/dL (8.4-10.2); Carbon Dioxide 23 mmol/L (22-30); Chloride 107 mmol/L (98-107); Glucose 119 mg/dL (74-99); Non-African American GFR(CKD) >90 (>60 ml/min/1.73 sqM); Potassium 3.9 mmol/L (3.5-5.1); Sodium 138 mmol/L (137-145); Total Bilirubin 0.5 mg/dL (0.2-1.3); Total Protein 6.5 g/dL (6.3-8.2)
[2021-07-31 17:01] LABS: Glucose,Whole Blood 117 mg/dL (75-99)
[2021-07-31] MEDS: INSULIN ASPART (NovoLOG) 100 UNIT/ML VIAL SQ SCH ×2 (17:18→21:02)
[2021-07-31 20:48] LABS: Glucose,Whole Blood 101 mg/dL (75-99)
[2021-08-01 02:36] LABS: Glucose,Whole Blood 174 mg/dL (75-99)
[2021-08-01] MEDS: INSULIN ASPART (NovoLOG) 100 UNIT/ML VIAL SQ SCH ×2 (02:47→11:17)
[2021-08-01 06:47] LABS: Glucose,Whole Blood 85 mg/dL (75-99)
[2021-08-01] MEDS: INSULIN DETEMIR (LEVEMIR) 100 UNIT/ML SYR SQ SCH (06:50)
[2021-08-01 07:12] LABS: ABG PH 6.98 (7.35-7.45)
[2021-08-01 07:14] LABS: ABG PCO2 <15 mmHg (35-45)
[2021-08-01] MEDS: HEPARIN SODIUM,PORCINE/PF 5,000 UNIT/0.5 ML SYRINGE SQ SCH (09:05)
[2021-08-01] MEDS: PANTOPRAZOLE 40 MG/10 ML VIAL IVP SCH (09:05)
--- NOTE | 2021-08-01 10:46 | P.PN ---
Subjective Progress Note Date: 08/01/21 Principal diagnosis: Diabetic ketoacidosis. 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 On today's evaluation, the patient is still on insulin drip which is running at 2.2 ML's an hour and the patient is also on D5 half-normal saline running at the rate of 150 mL an hour. Most recent blood sugar is 178. The morning electrolytes show that the patient's serum bicarbonate 16. Nevertheless, her anion gap has closed. The patient is doing well. Sinus tachycardia has recovered. No nausea. No emesis. No abdominal pain. No chest pain. Heart irregular rhythm is sinus. Sodium is at 134 with a potassium level of 3.8. BUN is at 5 with a creatinine of 0.4. White cell count is at 3.6 with a hemoglobin of 14. The chest x-ray that was done yesterday showed no acute abnormalities. Lungs were adequately expanded on both sides. As such, the patient has done extremely well over the past 24 hours. No other significant events. Neurologically, she is fully alert and awake and she is hungry Progress note dated 08/01/2021. 25-year-old female with history of long-standing type 1 diabetes. She was minute with a diagnosis of diabetic ketoacidosis. The patient has had previous episodes of DKA. Currently she is resting comfortably. She's on room air. She's not receiving any IV fluids. The patient could be considered for discharge home, for transfer to the general medical floor. We will leave that up to the primary service. Currently, no new labs. The most recent glucose is 85. Objective - Vital Signs Vital signs: Vital Signs Temp 98.1 F 08/01/21 09:05 Pulse 93 08/01/21 09:05 Resp 18 08/01/21 09:05 BP 117/72 08/01/21 09:05 Pulse Ox 97 08/01/21 09:05 FiO2 Intake & Output 07/31/21 08/01/21 08/01/21 18:59 06:59 18:59 Intake Total 1520.478 Output Total 850 Balance 670.478 Weight 67.9 kg 67.4 kg Intake: IV 1050 D5-0.45% NaCl with KCl 1050 20Meq/l 1,000 ml @ 150 mls/hr IV .Q6H40M [facility] Rx# :[id number] Intake, IV Titration 20.478 Amount Insulin Regular 100 unit 20.478 In Sodium Chloride 0.9% 100 ml @ 0.1 UNITS/KG/HR 6.643 mls/hr IV .[id number] [facility] Rx#:[id number] Oral 450 Output: Urine 850 Other: Voiding Method Toilet Toilet Toilet # Voids 1 - Exam No acute distress, oriented 3. HEENT examination is grossly unremarkable. Neck supple. Full range of motion. No adenopathy thyromegaly or neck vein distention. Cardiovascular examination reveals regular rhythm rate. S1-S2 normal. No S3 or S4. No discernible murmur noted. Heart rate 93 bpm. Lungs reveal clear breath sounds. Breath sounds are equal bilaterally. No adventitious lung sounds including wheezes rhonchi or crackles. Resting room air saturation is 97%. Abdomen soft bowel sounds are heard. No masses or tenderness. Extremities are intact. No cyanosis clubbing or edema. Skin is without rash or lesion. Neurologic examination is brief but nonfocal. - Labs CBC & Chem 7: 07/31/21 07:01 07/31/21 14:16 Labs: Abnormal Lab Results - Last 24 Hours (Table) 07/30/21 07/31/21 07/31/21 Range/Units 07:33 10:49 12:09 ABG pH 6.98 L* (7.35-7.45) ABG pCO2 <15 L* (35-45) mmHg Chloride 110 H (98-107) mmol/L Carbon Dioxide 17 L (22-30) mmol/L BUN 5 L (7-17) mg/dL Creatinine 0.41 L (0.52-1.04) mg/dL Glucose 143 H (74-99) mg/dL POC Glucose (mg/dL) 106 H (75-99) mg/dL 07/31/21 07/31/21 07/31/21 Range/Units 13:14 14:16 16:59 ABG pH (7.35-7.45) ABG pCO2 (35-45) mmHg Chloride (98-107) mmol/L Carbon Dioxide (22-30) mmol/L BUN 4 L (7-17) mg/dL Creatinine 0.41 L (0.52-1.04) mg/dL Glucose 119 H (74-99) mg/dL POC Glucose (mg/dL) 115 H 117 H (75-99) mg/dL 07/31/21 08/01/21 Range/Units 20:45 02:34 ABG pH (7.35-7.45) ABG pCO2 (35-45) mmHg Chloride (98-107) mmol/L Carbon Dioxide (22-30) mmol/L BUN (7-17) mg/dL Creatinine (0.52-1.04) mg/dL Glucose (74-99) mg/dL POC Glucose (mg/dL) 101 H 174 H (75-99) mg/dL Assessment and Plan Assessment: Diabetic ketoacidosis. Severe anion gap metabolic acidosis, resolved. History of type 1 diabetes mellitus. Dehydration, secondary to DKA, improved. Nausea and emesis, resolved. Plan: Plan dated 08/01/2021. The patient could be considered for discharge home, or transfer to the general medical floor. We'll leave that up to the primary service. She'll follow up at the clinic that she goes to. In addition, she does see a local demand planning manager for her diabetes. We will continue to follow make recommendations were appropriate. Is guarded. Time with Patient: Less than 30
[2021-08-01 11:10] LABS: Glucose,Whole Blood 127 mg/dL (75-99)
[2021-08-01 12:25] VITALS: BP 116/81; PULSE 99; RESP 15; TEMP 98.3
[2021-08-01] MEDS ORDERED: INSULIN ASPART (NovoLOG) 100 UNIT/ML VIAL SQ ONE (13:20)
--- NOTE | 2021-08-01 14:13 | P.DS ---
Providers Date of admission: 07/30/21 07:16 Attending physician: Bill Fang MD Consults: 07/30/21 07:43 Consult Physician Urgent Consulting Provider: Ricky Patton Consult Reason/Comments: ICU Do you want consulting provider notified?: Already Contacted Primary care physician: [facility] Hospital Course: Patient is a 25-year-old female who comes into the hospital with chief complaints of body aches as well as nausea. Patient reports that she's been having symptoms for the past 3 days. She reports that she has been sleeping all day for the past 2 days and has not taken any of her insulin. Patient does have type 1 diabetes and currently is on home dose of Lantus 40 units along with NovoLog sliding scale. Patient has not been checking her blood sugars and has not been taking her insulin. Patient was admitted to the hospital and found to be in severe DKA. Patient is being admitted to the intensive care unit for management. Patient denies any complaints of shortness of breath cough fevers chills. She does complain of generalized nausea as well as some emesis. No reports of hematochezia hematemesis Patient was transferred over from the intensive care unit over to the medical floor. Patient is very eager to be discharged home. POC glucose levels have been consistently below 200. 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 At this time we will discuss discharge the patient home on the current insulin regimen. We did confirm that she had all her supplies including a glucometer which she states that she does. At this time patient is okay to be discharged from ICU perspective as well as general medicine. Patient Condition at Discharge: Serious Plan - Discharge Summary Discharge Rx Participant: No New Discharge Prescriptions: Continue Ergocalciferol [Vitamin D2 (1250 Mcg = 87212 Iu)] 1,250 mcg PO Q7D Insulin Aspart [NovoLOG Flexpen] See Protocol SQ AC-TID Insulin Glargine,Hum.rec.anlog [Lantus Solostar Pen] 55 unit SQ DAILY Discharge Medication List Ergocalciferol [Vitamin D2 (1250 Mcg = 80789 Iu)] 1,250 mcg PO Q7D 07/30/21 [History] Insulin Aspart [NovoLOG Flexpen] See Protocol SQ AC-TID 07/30/21 [History] Insulin Glargine,Hum.rec.anlog [Lantus Solostar Pen] 55 unit SQ DAILY 07/30/21 [History] Follow up Appointment(s)/Referral(s): [facility] [Primary Care Provider] - 1-2 days Discharge Disposition: HOME SELF-CARE
== END 2021-08-01 15:02 | disposition home or self-care (01) | DRG 638 ==
LOC: EC 05:36 → 2SICU 07:16 → 5NMEDONC 08-01 09:56
PROVIDERS: ADMIT Internal Medicine; ATTEND Internal Medicine
DX: E10.10 Type 1 diabetes mellitus with ketoacidosis without coma (principal); E87.2 Acidosis; I49.9 Cardiac arrhythmia, unspecified; T38.3X6A Underdosing of insulin and oral hypoglycemic [antidiabetic] drugs, initial encounter; R11.2 Nausea with vomiting, unspecified; R53.1 Weakness; R00.0 Tachycardia, unspecified; E86.0 Dehydration; F17.210 Nicotine dependence, cigarettes, uncomplicated; Z20.822 Contact with and (suspected) exposure to COVID-19; Z79.4 Long term (current) use of insulin; Z91.14 Patient's other noncompliance with medication regimen; Z79.899 Other long term (current) drug therapy
CPT/HCPCS: 36415; 36600; 71045; 80051; 80053; 80306; 81001; 81025; 82009; 82150; 82565; 82805; 82947; 83036; 83690; 84100; 84520; 85025; 85027; 87502; 87635; 96361; 96374; 96375; 99291

== ENCOUNTER 2022-05-15 05:05 | Inpatient (IN) | payer OTHER ==
[2022-05-15 05:16] LABS: Glucose,Whole Blood 418 mg/dL (70-110)
[2022-05-15] MEDS ORDERED: SODIUM CHLORIDE 0.9% 1,000 ML IV ONE (05:18)
[2022-05-15] MEDS ORDERED: ONDANSETRON 4 MG/2 ML VIAL IVP STA (05:18)
[2022-05-15 05:38] LABS: Basophils # (A) 0.1 k/uL (0-0.2); Basophils % (A) 1 %; Eosinophils % (A) 0 %; HCT 51.3 % (34.0-46.0); HGB 16.9 gm/dL (11.4-16.0); Lymphocytes % (A) 10 %; MCH 30.8 pg (25.0-35.0); MCHC 33.1 g/dL (31.0-37.0); MCV 93.3 fL (80.0-100.0); Mean Platelet Volume 9.8; Monocytes # (A) 0.7 k/uL (0-1.0); Monocytes % (A) 4 %; Neutrophils % (A) 84 %; Platelet Count 364 k/uL (150-450); RDW 12.2 % (11.5-15.5); WBC 18.9 k/uL (3.8-10.6)
--- NOTE | 2022-05-15 05:47 | ED ---
General Adult HPI - General Chief complaint: Nausea/Vomiting/Diarrhea Stated complaint: vomiting,weakness Time Seen by Provider: 05/15/22 05:18 Source: patient Mode of arrival: ambulatory Limitations: no limitations - History of Present Illness Initial comments: This is a 26-year-old female with a past medical history including type 1 diabetes presented to the emergency room with her mother after suffering from nausea and vomiting of the last 24 hours. The patient stated that she has not been able to tolerate anything by mouth the last 24 hours and stated that she was sleeping for "20 hours throughout the day" and is now sore everywhere. The patient did state that her boyfriend now has the same symptoms that she does. The patient did state that her glucose was elevated before prior to coming to the emergency department. On evaluation, the patient denied of any acute pain or distress but was nauseous and dry heaving on evaluation. The patient denied any other acute pain or complaints and denied any fevers and chills. - Related Data Home Medications Medication Instructions Recorded Confirmed Ergocalciferol [Vitamin D2 (1250 1,250 mcg PO Q7D 07/30/21 07/30/21 Mcg = 04523 Iu)] Insulin Aspart [NovoLOG Flexpen] See Protocol SQ AC-TID 07/30/21 07/30/21 Insulin Glargine,Hum.rec.anlog 55 unit SQ DAILY 07/30/21 07/30/21 [Lantus Solostar Pen] Allergies Allergy/AdvReac Type Severity Reaction Status Date / Time No Known Allergies Allergy Verified 07/30/21 12:13 Review of Systems ROS Statement: Those systems with pertinent positive or pertinent negative responses have been documented in the HPI. ROS Other: All systems not noted in ROS Statement are negative. Past Medical History Past Medical History: Diabetes Mellitus History of Any Multi-Drug Resistant Organisms: None Reported Past Surgical History: Appendectomy Past Psychological History: No Psychological Hx Reported Smoking Status: Current some day smoker Past Alcohol Use History: Occasional Past Drug Use History: None Reported General Exam Limitations: no limitations General appearance: alert, in distress (In moderate distress secondary to nausea and dry heaving) Head exam: Present: atraumatic, normocephalic, normal inspection Eye exam: Present: normal appearance, PERRL Pupils: Present: normal accommodation ENT exam: Present: normal exam, normal oropharynx, mucous membranes moist Neck exam: Present: normal inspection, full ROM Respiratory exam: Present: normal lung sounds bilaterally Cardiovascular Exam: Present: regular rate, normal rhythm, normal heart sounds GI/Abdominal exam: Present: soft, normal bowel sounds Extremities exam: Present: normal inspection, full ROM Back exam: Present: normal inspection, full ROM Neurological exam: Present: alert, oriented X3, CN II-XII intact Psychiatric exam: Present: normal affect, normal mood Skin exam: Present: warm, dry Course Vital Signs 05/15/22 05:12 Temperature 98.7 F Pulse Rate 103 H Respiratory 22 Rate Blood Pressure 145/96 O2 Sat by Pulse 99 Oximetry EKG Findings - EKG Comments: EKG Findings:: An EKG was obtained and was interpreted by myself showing a rate of 100, SD interval 128, QRS duration 97 and QTC of 419. This EKG showed a sinus tachycardia without any ST segment elevation or depression noted. There were however T-wave inversions noted in lead 2, 3, aVF as well as V3, V4 and V5. There were no old EKGs for comparison at this time however the patient denied any active chest pain or shortness of breath. Medical Decision Making - Medical Decision Making Was pt. sent in by a medical professional or institution (, PA, METAL PICKLING EQUIPMENT OPERATOR, urgent care, hospital, or longterm...) When possible be specific @ -[No] Did you speak to anyone other than the patient for history (EMS, parent, family, police, friend...)? What history was obtained from this source @ -Yes, patient's mother Did you review nursing and triage notes (agree or disagree)? Why? @ -[I reviewed and agree with nursing and triage notes] Were old charts reviewed (outside hosp., previous admission, EMS record, old EKG, old radiological studies, urgent care reports/EKG's, longterm records)? Report findings @ -[No old charts were reviewed] Differential Diagnosis (chest pain, altered mental status, abdominal pain women, abdominal pain men, vaginal bleeding, weakness, fever, dyspnea, syncope, headache, dizziness, GI bleed, back pain, seizure, CVA, palpatations, mental health)? @ -DKA, gastroenteritis, norovirus EKG interpreted by me (3pts min.). @ -See above X-rays interpreted by me (1pt min.). @ -[None done] CT interpreted by me (1pt min.). @ -[None done] U/S interpreted by me (1pt. min.). @ -[None done] What testing was considered but not performed or refused? (CT, X-rays, U/S, labs)? Why? @ -[None] What meds were considered but not given or refused? Why? @ -[None] Did you discuss the management of the patient with other professionals (professionals i.e. , PA, METAL PICKLING EQUIPMENT OPERATOR, lab, RT, psych nurse, case management social worker, insole cementer, teacher, dairy quality assurance officer, case management social worker)? Give summary @ -[No] Was smoking cessation discussed for >3mins.? @ -[No] Was critical care preformed (if so, how long)? @ -[No] Were there social determinants of health that impacted care today? How? ( Homelessness, low income, unemployed, alcoholism, drug addiction, transportation, low edu. Level, literacy, decrease access to med. care, fpc, rehab)? @ -[No] Was there de-escalation of care discussed even if they declined (Discuss DNR or withdrawal of care, Hospice)? DNR status @ -[No] What co-morbidities impacted this encounter? (DM, HTN, Smoking, COPD, CAD, Cancer, CVA, ARF, Chemo, Hep., AIDS, mental health diagnosis, sleep apnea, morbid obesity)? @ -Type 1 diabetes Was patient admitted / discharged? Hospital course, mention meds given and route, prescriptions, significant lab abnormalities, going to OR and other pertinent info. @ -The patient was seen and evaluated emergency department. Physical exam, the patient was resting in bed in mild distress secondary to nausea and dry heaving. Vital signs were stable. Due to the nature the patient's past medical history including type 1 diabetes, laboratory workup was obtained to rule out DKA. Because the patient's boyfriend also had similar episodes and symptoms, it was likely the patient was having a viral gastroenteritis. The patient was given 1 L no sealing fluid as well as 4 mg of Zofran. Laboratory workup was obtained and showed the patient was in severe DKA. The patient was started on a n insulin drip per DKA protocol. The patient's primary care physician is covered by [facility] emergency department physician [facility] and Dr. Suarez was contacted and accepted the patient for admission. The laser print operator, Dr. Tobin was also contacted and accepted the patient to the ICU. The patient remained stable and was admitted in ICU in serious condition secondary to severe DKA Undiagnosed new problem with uncertain prognosis? @ -[No] Drug Therapy requiring intensive monitoring for toxicity (Heparin, Nitro, Insulin, Cardizem)? @ -[No] Were any procedures done? @ -[No] Diagnosis/symptom? @ -DKA Acute, or Chronic, or Acute on Chronic? @ -Acute Uncomplicated (without systemic symptoms) or Complicated (systemic symptoms)? @ -Complicated Side effects of treatment? @ -[No] Exacerbation, Progression, or Severe Exacerbation? @ -[No] Poses a threat to life or bodily function? How? (Chest pain, [place], [place], pneumonia, PE, COPD, DKA, ARF, appy, cholecystitis, CVA, Diverticulitis, Homicidal, Suicidal, threat to staff... and all critical care pts) @ -Yes, continue DKA can cause continued electrolyte abnormalities, cardiac dysrhythmias and possible . - Lab Data Result diagrams: 05/15/22 05:30 05/15/22 05:30 Lab Results 05/15/22 05/15/22 05/15/22 Range/Units 05:14 05:30 05:30 WBC 18.9 H (3.8-10.6) k/uL RBC 5.50 H (3.80-5.40) m/uL Hgb 16.9 H (11.4-16.0) gm/dL Hct 51.3 H (34.0-46.0) % MCV 93.3 (80.0-100.0) fL MCH 30.8 (25.0-35.0) pg MCHC 33.1 (31.0-37.0) g/dL RDW 12.2 (11.5-15.5) % Plt Count 364 (150-450) k/uL MPV 9.8 Neutrophils % 84 % Lymphocytes % 10 % Monocytes % 4 % Eosinophils % 0 % Basophils % 1 % Neutrophils # 16.0 H (1.3-7.7) k/uL Lymphocytes # 2.0 (1.0-4.8) k/uL Monocytes # 0.7 (0-1.0) k/uL Eosinophils # 0.0 (0-0.7) k/uL Basophils # 0.1 (0-0.2) k/uL VBG pH (7.31-7.41) VBG pCO2 (37-51) mmHg VBG HCO3 (24-28) mmol/L Sodium 135 L (137-145) mmol/L Potassium 5.9 H (3.5-5.1) mmol/L Chloride 101 (98-107) mmol/L Carbon Dioxide <5 L* (22-30) mmol/L Anion Gap mmol/L BUN 10 (7-17) mg/dL Creatinine 0.82 (0.52-1.04) mg/dL Est GFR (CKD-EPI)AfAm >90 (>60 ml/min/1.73 sqM) Est GFR (CKD-EPI)NonAf >90 (>60 ml/min/1.73 sqM) Glucose 427 H (74-99) mg/dL POC Glucose (mg/dL) 418 H (70-110) mg/dL POC Glu Bulldozer Mechanic ID Gayatri Gonzalez Calcium 9.4 (8.4-10.2) mg/dL Magnesium 2.2 (1.6-2.3) mg/dL Total Bilirubin 1.1 (0.2-1.3) mg/dL AST 31 (14-36) U/L ALT 22 (4-34) U/L Alkaline Phosphatase 124 (38-126) U/L Total Protein 9.9 H (6.3-8.2) g/dL Albumin 5.8 H (3.5-5.0) g/dL Lipase 46 (23-300) U/L Urine Color Urine Appearance (Clear) Urine pH (5.0-8.0) Ur Specific Harold (1.001-1.035) Urine Protein (Negative) Urine Glucose (UA) (Negative) Urine Ketones (Negative) Urine Blood (Negative) Urine Nitrite (Negative) Urine Bilirubin (Negative) Urine Urobilinogen (<2.0) mg/dL Ur Leukocyte Esterase (Negative) Urine RBC (0-5) /hpf Urine WBC (0-5) /hpf Ur Squamous Epith Cells (0-4) /hpf Urine Bacteria (None) /hpf Urine Mucus (None) /hpf Urine HCG, Qual (Not Detectd) 05/15/22 05/15/22 05/15/22 Range/Units 05:41 05:41 06:15 WBC (3.8-10.6) k/uL RBC (3.80-5.40) m/uL Hgb (11.4-16.0) gm/dL Hct (34.0-46.0) % MCV (80.0-100.0) fL MCH (25.0-35.0) pg MCHC (31.0-37.0) g/dL RDW (11.5-15.5) % Plt Count (150-450) k/uL MPV Neutrophils % % Lymphocytes % % Monocytes % % Eosinophils % % Basophils % % Neutrophils # (1.3-7.7) k/uL Lymphocytes # (1.0-4.8) k/uL Monocytes # (0-1.0) k/uL Eosinophils # (0-0.7) k/uL Basophils # (0-0.2) k/uL VBG pH 6.99 L* (7.31-7.41) VBG pCO2 22 L (37-51) mmHg VBG HCO3 5 L* (24-28) mmol/L Sodium (137-145) mmol/L Potassium (3.5-5.1) mmol/L Chloride (98-107) mmol/L Carbon Dioxide (22-30) mmol/L Anion Gap mmol/L BUN (7-17) mg/dL Creatinine (0.52-1.04) mg/dL Est GFR (CKD-EPI)AfAm (>60 ml/min/1.73 sqM) Est GFR (CKD-EPI)NonAf (>60 ml/min/1.73 sqM) Glucose (74-99) mg/dL POC Glucose (mg/dL) (70-110) mg/dL POC Glu Bulldozer Mechanic ID Calcium (8.4-10.2) mg/dL Magnesium (1.6-2.3) mg/dL Total Bilirubin (0.2-1.3) mg/dL AST (14-36) U/L ALT (4-34) U/L Alkaline Phosphatase (38-126) U/L Total Protein (6.3-8.2) g/dL Albumin (3.5-5.0) g/dL Lipase (23-300) U/L Urine Color Colorless Urine Appearance Clear (Clear) Urine pH 5.5 (5.0-8.0) Ur Specific Harold 1.022 (1.001-1.035) Urine Protein 2+ H (Negative) Urine Glucose (UA) 4+ H (Negative) Urine Ketones 4+ H (Negative) Urine Blood Moderate H (Negative) Urine Nitrite Negative (Negative) Urine Bilirubin Negative (Negative) Urine Urobilinogen <2.0 (<2.0) mg/dL Ur Leukocyte Esterase Negative (Negative) Urine RBC 28 H (0-5) /hpf Urine WBC 4 (0-5) /hpf Ur Squamous Epith Cells 2 (0-4) /hpf Urine Bacteria Few H (None) /hpf Urine Mucus Rare H (None) /hpf Urine HCG, Qual Not Detected (Not Detectd) 05/15/22 Range/Units 06:24 WBC (3.8-10.6) k/uL RBC (3.80-5.40) m/uL Hgb (11.4-16.0) gm/dL Hct (34.0-46.0) % MCV (80.0-100.0) fL MCH (25.0-35.0) pg MCHC (31.0-37.0) g/dL RDW (11.5-15.5) % Plt Count (150-450) k/uL MPV Neutrophils % % Lymphocytes % % Monocytes % % Eosinophils % % Basophils % % Neutrophils # (1.3-7.7) k/uL Lymphocytes # (1.0-4.8) k/uL Monocytes # (0-1.0) k/uL Eosinophils # (0-0.7) k/uL Basophils # (0-0.2) k/uL VBG pH (7.31-7.41) VBG pCO2 (37-51) mmHg VBG HCO3 (24-28) mmol/L Sodium (137-145) mmol/L Potassium (3.5-5.1) mmol/L Chloride (98-107) mmol/L Carbon Dioxide (22-30) mmol/L Anion Gap mmol/L BUN (7-17) mg/dL Creatinine (0.52-1.04) mg/dL Est GFR (CKD-EPI)AfAm (>60 ml/min/1.73 sqM) Est GFR (CKD-EPI)NonAf (>60 ml/min/1.73 sqM) Glucose (74-99) mg/dL POC Glucose (mg/dL) 391 H (70-110) mg/dL POC Glu Bulldozer Mechanic ID Jaun Davis Calcium (8.4-10.2) mg/dL Magnesium (1.6-2.3) mg/dL Total Bilirubin (0.2-1.3) mg/dL AST (14-36) U/L ALT (4-34) U/L Alkaline Phosphatase (38-126) U/L Total Protein (6.3-8.2) g/dL Albumin (3.5-5.0) g/dL Lipase (23-300) U/L Urine Color Urine Appearance (Clear) Urine pH (5.0-8.0) Ur Specific Harold (1.001-1.035) Urine Protein (Negative) Urine Glucose (UA) (Negative) Urine Ketones (Negative) Urine Blood (Negative) Urine Nitrite (Negative) Urine Bilirubin (Negative) Urine Urobilinogen (<2.0) mg/dL Ur Leukocyte Esterase (Negative) Urine RBC (0-5) /hpf Urine WBC (0-5) /hpf Ur Squamous Epith Cells (0-4) /hpf Urine Bacteria (None) /hpf Urine Mucus (None) /hpf Urine HCG, Qual (Not Detectd) Critical Care Time Critical Care Time: Yes Total Critical Care Time: 34 Disposition Clinical Impression: DKA (diabetic ketoacidosis) Disposition[facility] Condition: Serious Is patient prescribed a controlled substance at d/c from ED?: No Referrals: [facility] [Primary Care Provider] - 1-2 days Time of Disposition: 06:10 Decision to Admit Reason: Admit from EC Decision Date: 05/15/22 Decision Time: 06:10
[2022-05-15 05:50] LABS: ALT 22 U/L (4-34); AST 31 U/L (14-36); African American GFR (CKD) >90 (>60 ml/min/1.73 sqM); Albumin 5.8 g/dL (3.5-5.0); Alkaline Phosphatase 124 U/L (38-126); Blood Urea Nitrogen 10 mg/dL (7-17); Calcium 9.4 mg/dL (8.4-10.2); Chloride 101 mmol/L (98-107); Glucose 427 mg/dL (74-99); Lipase 46 U/L (23-300); Magnesium 2.2 mg/dL (1.6-2.3); Non-African American GFR(CKD) >90 (>60 ml/min/1.73 sqM); Sodium 135 mmol/L (137-145); Total Bilirubin 1.1 mg/dL (0.2-1.3); Total Protein 9.9 g/dL (6.3-8.2)
[2022-05-15 05:55] LABS: Carbon Dioxide <5 mmol/L (22-30)
[2022-05-15 05:55] LABS: Appearance,Urine Clear (Clear); Bacteria,Urine Few /hpf; Bilirubin,Urine Negative (Negative); Blood,Urine Moderate (Negative); Color,Urine Colorless; Glucose,Urine (UA) 4+ (Negative); Leukocyte Esterase,Urine Negative (Negative); Mucus,Urine Rare /hpf; Nitrite,Urine Negative (Negative); PH, Urine 5.5 (5.0-8.0); Protein,Urine 2+ (Negative); RBC,Urine 28 /hpf (0-5); Specific Gravity,Urine 1.022 (1.001-1.035); Squamous Epithelial Cell,Urine 2 /hpf (0-4); Urobilinogen,Urine <2.0 mg/dL (<2.0); WBC,Urine 4 /hpf (0-5)
[2022-05-15 05:57] LABS: Potassium 5.9 mmol/L (3.5-5.1)
[2022-05-15 06:01] LABS: Ketones,Urine 4+ (Negative)
[2022-05-15] MEDS ORDERED: Potassium Replacement Protocol 1 EACH MISC MISCELLANE PRN (06:05)
[2022-05-15] MEDS ORDERED: DEXTROSE 50% SYRINGE 50 ML IVP PRN ×2 (06:05)
[2022-05-15] MEDS ORDERED: Magnesium Replacement Protocol 1 EACH MISC MISCELLANE PRN (06:05)
[2022-05-15 06:23] LABS: VBG PH 6.99 (7.31-7.41)
[2022-05-15 06:26] LABS: Glucose,Whole Blood 391 mg/dL (70-110)
[2022-05-15] MEDS: INSULIN REGULAR 100 UNIT in SODIUM CHLORIDE 0.9% 100 ML IV SCH (06:27)
[2022-05-15] MEDS: SODIUM CHLORIDE 0.9% 1,000 ML IV SCH ×3 (06:27→11:04)
[2022-05-15] MEDS ORDERED: ACETAMINOPHEN TAB 500 MG TAB PO STA (06:39)
[2022-05-15] MEDS ORDERED: NALOXONE 0.4 MG/ML 1 ML VIAL IV PRN (06:46)
[2022-05-15 07:38] LABS: African American GFR (CKD) >90 (>60 ml/min/1.73 sqM); Blood Urea Nitrogen 10 mg/dL (7-17); Carbon Dioxide <5 mmol/L (22-30); Chloride 108 mmol/L (98-107); Glucose 353 mg/dL (74-99); Non-African American GFR(CKD) >90 (>60 ml/min/1.73 sqM); Potassium 4.7 mmol/L (3.5-5.1); Sodium 141 mmol/L (137-145)
[2022-05-15 07:46] LABS: Glucose,Whole Blood 303 mg/dL (70-110)
[2022-05-15 08:55] LABS: Glucose,Whole Blood 236 mg/dL (70-110)
[2022-05-15] MEDS ORDERED: ACETAMINOPHEN TAB 500 MG TAB PO PRN (10:16)
[2022-05-15] MEDS: PANTOPRAZOLE 40 MG/10 ML VIAL IVP SCH (10:30)
[2022-05-15] MEDS: D5-0.45% NACL WITH KCL 20MEQ/L 1,000 ML IV SCH ×2 (11:03→17:41)
[2022-05-15] MEDS ORDERED: ONDANSETRON 4 MG/2 ML VIAL IVP PRN (11:22)
--- NOTE | 2022-05-15 12:22 | P.CNPUL ---
History of Present Illness Consult date: 05/15/22 Requesting physician: Latricia Jauregui Reason for consult: other (Acute DKA) Chief complaint: Nausea and vomiting History of present illness: This is a 26-year-old female with history of type 1 diabetes, brought in yesterday to the emergency room with 24 hours history of nausea and vomiting. Patient has been unable to tolerate anything by mouth. For the last 24 hours. She was also complaining of being sore everywhere, blood sugar on admission was as high as 427, patient was also noted to have positive ketones in the urine, she had a significant anion gap metabolic acidosis, hence she was diagnosed with diabetic ketoacidosis, started on the protocol for DKA, and I was notified about this patient early this morning, and recommended admission to the ICU. Patient is now on insulin at 6.64 units per hour IV fluid 0.9 normal saline at 200 mL/h. Feeling a bit better compared to how she felt on her initial evaluation. However continues to have relatively low bicarb less than 5, and her anion gap apparently has not been closed. WBC count is 18.9 hemoglobin is 16.9 electrolytes on admission showed elevated potassium of 5.9 bicarb below 5 renal profile is normal, urinalysis showed 4+ glucose and 4+ ketones. Review of Systems Constitutional: Generalized aches and nausea and vomiting no fever no chills. HEENT: Negative no sore throat. No cough Pulmonary: Asymptomatic no cough no wheezing no shortness of breath Cardiac: Negative GI as noted in HPI mostly nausea and vomiting unable to hold anything down. Genitourinary: Negative no dysuria frequency urgency or hematuria Endocrine: Type 1 diabetes and previous history of DKA Psychiatric: Negative Neurologic: Negative Musculoskeletal: Negative Skin: Negative Past Medical History Past Medical History: Diabetes Mellitus History of Any Multi-Drug Resistant Organisms: None Reported Past Surgical History: Appendectomy Smoking Status: Current some day smoker Medications and Allergies Home Medications Medication Instructions Recorded Confirmed Type Ergocalciferol [Vitamin D2 (1250 1,250 mcg PO Q7D 07/30/21 05/15/22 History Mcg = 16707 Iu)] Insulin Aspart [NovoLOG Flexpen] See Protocol SQ AC-TID MDD 65 units 07/30/21 05/15/22 History Insulin Glargine,Hum.rec.anlog 55 unit SQ DAILY 07/30/21 05/15/22 History [Lantus Solostar Pen] Allergies Allergy/AdvReac Type Severity Reaction Status Date / Time No Known Allergies Allergy Verified 05/15/22 08:34 Physical Exam Vitals: Vital Signs Temp Pulse Resp BP Pulse Ox 05/15/22 12:00 98.9 F 98 15 117/72 99 05/15/22 11:50 97 14 119/75 99 05/15/22 11:40 99 11 L 119/75 99 05/15/22 11:30 96 10 L 119/75 98 05/15/22 11:20 96 13 119/75 99 05/15/22 11:10 98 14 119/75 99 05/15/22 11:00 98 15 119/75 99 05/15/22 10:50 94 17 121/79 100 05/15/22 10:40 123 H 15 121/79 99 05/15/22 10:30 113 H 11 L 121/79 99 05/15/22 10:20 96 15 121/79 99 05/15/22 10:10 96 22 121/79 100 05/15/22 10:00 96 22 121/79 100 05/15/22 09:00 98.6 F 106 H 21 131/82 99 05/15/22 08:30 98.9 F 105 H 24 145/85 100 05/15/22 05:12 98.7 F 103 H 22 145/96 99 Intake and Output 05/14/22 05/15/22 05/15/22 22:59 06:59 14:59 Intake Total 793.955 Output Total 200 Balance 593.955 Intake: Intake, IV Titration 793.955 Amount D5-0.45% NaCl with KCl 150 20Meq/l 1,000 ml @ 150 mls/hr IV .Q6H40M [facility] Rx# :[id number] Insulin Regular 100 unit 43.955 In Sodium Chloride 0.9% 100 ml @ 0.1 UNITS/KG/HR 6.643 mls/hr IV .[id number] [facility] Rx#:[id number] Sodium Chloride 0.9% 1, 600 000 ml @ 200 mls/hr IV . Q5H [facility] Rx#:[id number] Output: Urine 200 Other: Voiding Method Bedside Commode Weight 65.771 kg 65.771 kg Physical Exam: Revealed a 26-year-old female in no distress Head: Atraumatic normocephalic. HEENT:[Neck is supple.] [No neck masses.] [No thyromegaly.] [No JVD.], Extremely dry mucous membranes Chest: [Clear throughout, no crackles, no rhonchi, no wheezes.] Cardiac Exam: [Normal S1 and S2, no S3 gallop, no murmur.] Abdomen: [Soft, nontender, no megaly, no rebound, no guarding, normal bowel sounds.] Extremities: [No clubbing, no edema, no cyanosis.] Neurological Exam: [No focal neurologic deficit.] Alert oriented 3 Psychiatric: Normal mood affect and normal mental status examination. Skin: No rashes Musculoskeletal: No deformities and no limitation in range of motion Results - Laboratory Findings CBC and BMP: 05/15/22 05:30 05/15/22 07:20 Abnormal lab findings: Abnormal Labs 05/15/22 05/15/22 05/15/22 05:14 05:30 05:30 WBC 18.9 H RBC 5.50 H Hgb 16.9 H Hct 51.3 H Neutrophils # 16.0 H VBG pH VBG pCO2 VBG HCO3 Sodium 135 L Potassium 5.9 H Chloride Carbon Dioxide <5 L* Glucose 427 H POC Glucose (mg/dL) 418 H Total Protein 9.9 H Albumin 5.8 H Urine Protein Urine Glucose (UA) Urine Ketones Urine Blood Urine RBC Urine Bacteria Urine Mucus 05/15/22 05/15/22 05/15/22 05:41 06:15 06:24 WBC RBC Hgb Hct Neutrophils # VBG pH 6.99 L* VBG pCO2 22 L VBG HCO3 5 L* Sodium Potassium Chloride Carbon Dioxide Glucose POC Glucose (mg/dL) 391 H Total Protein Albumin Urine Protein 2+ H Urine Glucose (UA) 4+ H Urine Ketones 4+ H Urine Blood Moderate H Urine RBC 28 H Urine Bacteria Few H Urine Mucus Rare H 05/15/22 05/15/22 05/15/22 07:20 07:44 08:42 WBC RBC Hgb Hct Neutrophils # VBG pH VBG pCO2 VBG HCO3 Sodium Potassium Chloride 108 H Carbon Dioxide <5 L* Glucose 353 H POC Glucose (mg/dL) 303 H 236 H Total Protein Albumin Urine Protein Urine Glucose (UA) Urine Ketones Urine Blood Urine RBC Urine Bacteria Urine Mucus Assessment and Plan Assessment: Impression: Acute diabetic ketoacidosis Acute anion gap metabolic acidosis Type 1 diabetes Nausea and emesis secondary to above Recommendation: Continue IV fluids/0.9 normal saline at 200 mL/h Continue insulin drip Continue protocol for DKA. Hourly sugar monitoring Continue IV Protonix and IV Zofran Heparin subcu for DVT prophylaxis We will continue to follow Time with Patient: Greater than 30
[2022-05-15 12:38] LABS: African American GFR (CKD) >90 (>60 ml/min/1.73 sqM); Anion Gap 21 mmol/L; Blood Urea Nitrogen 9 mg/dL (7-17); Chloride 111 mmol/L (98-107); Glucose 152 mg/dL (74-99); Non-African American GFR(CKD) >90 (>60 ml/min/1.73 sqM); Potassium 4.3 mmol/L (3.5-5.1); Sodium 138 mmol/L (137-145)
--- NOTE | 2022-05-15 12:43 | P.HPIM ---
History of Present Illness H&P Date: 05/15/22 This is a 26 year old female who is a type 1 diabetic diagnosed at age 10, follows with Dr. Landry outpatient, former smoker. Patient presents to the hospital with 2 day history of nausea, vomiting and poor oral intake. Patient also reports generalized weakness and fatigue and states she has been laying in bed for over 20 hours and reports feeling sore. Denies fever but reports feeling chills at home. No shortness of breath or chest pain reported. Denies diarrhea. Initial work up reveals EKG of sinus tachycardia with heart rate of 100, patient does have inverted T wave. White count of 18.9.Patient had blood sugar of 427 on admission and ketone positive. Patient has significant metabolic acidosis with anion gap unable to be resulted and bicarb of <5. Potassium of 5.9 which has improved to 4.7. Patient is NPO and has been started on insulin gtt DKA protocol. Patient did receive fluid bolus and has been receiving normal saline. Fluids will be adjusted to D5 1/2 normal saline with 20 meq potassium and continue to repeat labs every 4 hours until anion gap has improved. Patient is receiving antiemetics. Monitored closely in intensive care unit. Patient has remained afebrile and on room air. REVIEW OF SYSTEMS: CONSTITUTIONAL: No fever, reports malaise and fatigue HEENT: No recent visual problems or hearing problems. Denied any sore throat. CARDIOVASCULAR: No chest pain, orthopnea, PND, no palpitations, no syncope. PULMONARY: No shortness of breath, no cough, no hemoptysis. GASTROINTESTINAL: No diarrhea, reports nausea, vomiting. NEUROLOGICAL: No headaches, no weakness, no numbness. HEMATOLOGICAL: Denies any bleeding or petechiae. GENITOURINARY: Denies any burning micturition, frequency, or urgency. MUSCULOSKELETAL/RHEUMATOLOGICAL: Denies any joint pain, swelling, or any muscle pain. ENDOCRINE: Denies any polyuria or polydipsia. The rest of the 14-point review of systems is negative. PHYSICAL EXAMINATION: GENERAL: The patient is alert and oriented x3, not in any acute distress. Well developed, well nourished. Drowsy HEENT: Pupils are round and equally reacting to light. EOMI. No scleral icterus. No conjunctival pallor. Normocephalic, atraumatic. No pharyngeal erythema. No thyromegaly. CARDIOVASCULAR: S1 and S2 present. No murmurs, rubs, or gallops. PULMONARY: Chest is clear to auscultation, no wheezing or crackles. ABDOMEN: Soft, nontender, nondistended, normoactive bowel sounds. No palpable organomegaly. MUSCULOSKELETAL: No joint swelling or deformity. EXTREMITIES: No cyanosis, clubbing, or pedal edema. NEUROLOGICAL: Gross neurological examination did not reveal any focal deficits. SKIN: No rashes. Assessment and Plan Assessment Diabetic ketoacidosis on insulin gtt Metabolic acidosis secondary to above Nausea and vomiting from DKA Neutrophilic leukocytosis Type 1 Diabetes Mellitus Former smoker GI prophyalxis Full Code Plan Continue insulin gtt per protocol Repeat labs, if potassium remains elevated in follow up blood work fluids will be changed to D5 1/2 normal saline without the added potassium. Antiemetics and supportive care NPO status until DKA resolves The impression and plan of care has been dictated by Connie Schrader Nurse Practitioner as directed. Dr. Juventino MD I have performed a history and physical examination and medical decision making of this patient, discussed the same with the dictator, and agree with the dictators assessment and plan as written, documented as a scribe. Based on total visit time, I have performed more than 50% of this visit. Past Medical History Past Medical History: Diabetes Mellitus History of Any Multi-Drug Resistant Organisms: None Reported Past Surgical History: Appendectomy Smoking Status: Current some day smoker Medications and Allergies Home Medications Medication Instructions Recorded Confirmed Type Ergocalciferol [Vitamin D2 (1250 1,250 mcg PO Q7D 07/30/21 05/15/22 History Mcg = 38601 Iu)] Insulin Aspart [NovoLOG Flexpen] See Protocol SQ AC-TID MDD 65 units 07/30/21 05/15/22 History Insulin Glargine,Hum.rec.anlog 55 unit SQ DAILY 07/30/21 05/15/22 History [Lantus Solostar Pen] Allergies Allergy/AdvReac Type Severity Reaction Status Date / Time No Known Allergies Allergy Verified 05/15/22 08:34 Physical Exam Vitals: Vital Signs Temp Pulse Resp BP Pulse Ox 05/15/22 12:00 98.9 F 98 15 117/72 99 05/15/22 11:50 97 14 119/75 99 05/15/22 11:40 99 11 L 119/75 99 05/15/22 11:30 96 10 L 119/75 98 05/15/22 11:20 96 13 119/75 99 05/15/22 11:10 98 14 119/75 99 05/15/22 11:00 98 15 119/75 99 05/15/22 10:50 94 17 121/79 100 05/15/22 10:40 123 H 15 121/79 99 05/15/22 10:30 113 H 11 L 121/79 99 05/15/22 10:20 96 15 121/79 99 05/15/22 10:10 96 22 121/79 100 05/15/22 10:00 96 22 121/79 100 05/15/22 09:00 98.6 F 106 H 21 131/82 99 05/15/22 08:30 98.9 F 105 H 24 145/85 100 05/15/22 05:12 98.7 F 103 H 22 145/96 99 Intake and Output 05/14/22 05/15/22 05/15/22 22:59 06:59 14:59 Intake Total 793.955 Output Total 200 Balance 593.955 Intake: Intake, IV Titration 793.955 Amount D5-0.45% NaCl with KCl 150 20Meq/l 1,000 ml @ 150 mls/hr IV .Q6H40M [facility] Rx# :[id number] Insulin Regular 100 unit 43.955 In Sodium Chloride 0.9% 100 ml @ 0.1 UNITS/KG/HR 6.643 mls/hr IV .[id number] [facility] Rx#:[id number] Sodium Chloride 0.9% 1, 600 000 ml @ 200 mls/hr IV . Q5H [facility] Rx#:[id number] Output: Urine 200 Other: Voiding Method Bedside Commode Weight 65.771 kg 65.771 kg Results CBC & Chem 7: 05/15/22 05:30 05/15/22 07:20 Labs: Abnormal Lab Results - Last 24 Hours (Table) 05/15/22 05/15/22 05/15/22 Range/Units 05:14 05:30 05:30 WBC 18.9 H (3.8-10.6) k/uL RBC 5.50 H (3.80-5.40) m/uL Hgb 16.9 H (11.4-16.0) gm/dL Hct 51.3 H (34.0-46.0) % Neutrophils # 16.0 H (1.3-7.7) k/uL VBG pH (7.31-7.41) VBG pCO2 (37-51) mmHg VBG HCO3 (24-28) mmol/L Sodium 135 L (137-145) mmol/L Potassium 5.9 H (3.5-5.1) mmol/L Chloride (98-107) mmol/L Carbon Dioxide <5 L* (22-30) mmol/L Glucose 427 H (74-99) mg/dL POC Glucose (mg/dL) 418 H (70-110) mg/dL Total Protein 9.9 H (6.3-8.2) g/dL Albumin 5.8 H (3.5-5.0) g/dL Urine Protein (Negative) Urine Glucose (UA) (Negative) Urine Ketones (Negative) Urine Blood (Negative) Urine RBC (0-5) /hpf Urine Bacteria (None) /hpf Urine Mucus (None) /hpf 05/15/22 05/15/22 05/15/22 Range/Units 05:41 06:15 06:24 WBC (3.8-10.6) k/uL RBC (3.80-5.40) m/uL Hgb (11.4-16.0) gm/dL Hct (34.0-46.0) % Neutrophils # (1.3-7.7) k/uL VBG pH 6.99 L* (7.31-7.41) VBG pCO2 22 L (37-51) mmHg VBG HCO3 5 L* (24-28) mmol/L Sodium (137-145) mmol/L Potassium (3.5-5.1) mmol/L Chloride (98-107) mmol/L Carbon Dioxide (22-30) mmol/L Glucose (74-99) mg/dL POC Glucose (mg/dL) 391 H (70-110) mg/dL Total Protein (6.3-8.2) g/dL Albumin (3.5-5.0) g/dL Urine Protein 2+ H (Negative) Urine Glucose (UA) 4+ H (Negative) Urine Ketones 4+ H (Negative) Urine Blood Moderate H (Negative) Urine RBC 28 H (0-5) /hpf Urine Bacteria Few H (None) /hpf Urine Mucus Rare H (None) /hpf 05/15/22 05/15/22 05/15/22 Range/Units 07:20 07:44 08:42 WBC (3.8-10.6) k/uL RBC (3.80-5.40) m/uL Hgb (11.4-16.0) gm/dL Hct (34.0-46.0) % Neutrophils # (1.3-7.7) k/uL VBG pH (7.31-7.41) VBG pCO2 (37-51) mmHg VBG HCO3 (24-28) mmol/L Sodium (137-145) mmol/L Potassium (3.5-5.1) mmol/L Chloride 108 H (98-107) mmol/L Carbon Dioxide <5 L* (22-30) mmol/L Glucose 353 H (74-99) mg/dL POC Glucose (mg/dL) 303 H 236 H (70-110) mg/dL Total Protein (6.3-8.2) g/dL Albumin (3.5-5.0) g/dL Urine Protein (Negative) Urine Glucose (UA) (Negative) Urine Ketones (Negative) Urine Blood (Negative) Urine RBC (0-5) /hpf Urine Bacteria (None) /hpf Urine Mucus (None) /hpf Assessment and Plan Time with Patient: Less than 30
[2022-05-15] MEDS ORDERED: ERGOCALCIFEROL 1,250 MCG (50,000 IU) CAPSULE PO SCH (13:00)
[2022-05-15 13:15] LABS: Carbon Dioxide 6 mmol/L (22-30)
[2022-05-15 13:38] LABS: Glucose,Whole Blood 173 mg/dL (70-110)
[2022-05-15 14:08] LABS: Glucose,Whole Blood 180 mg/dL (70-110)
[2022-05-15] MEDS ORDERED: POTAS-SOD-PHOS 278-164-250 MG 1 EACH PACKET PO ONE (14:59)
[2022-05-15] MEDS ORDERED: ALBUTEROL HFA INHALER INHALATION PRN (14:59)
[2022-05-15] MEDS ORDERED: Phosphorus Replacement Protoco 1 EACH MISC MISCELLANE PRN (14:59)
[2022-05-15 15:18] LABS: Glucose,Whole Blood 182 mg/dL (70-110)
[2022-05-15] MEDS: HEPARIN SODIUM,PORCINE/PF 5,000 UNIT/0.5 ML SYRINGE SQ SCH (15:50)
[2022-05-15 16:00] LABS: Glucose,Whole Blood 194 mg/dL (70-110)
[2022-05-15 16:57] LABS: African American GFR (CKD) >90 (>60 ml/min/1.73 sqM); Anion Gap 16 mmol/L; Blood Urea Nitrogen 8 mg/dL (7-17); Chloride 112 mmol/L (98-107); Glucose 180 mg/dL (74-99); Non-African American GFR(CKD) >90 (>60 ml/min/1.73 sqM); Phosphorus 1.5 mg/dL (2.5-4.5); Potassium 4.6 mmol/L (3.5-5.1); Sodium 136 mmol/L (137-145)
[2022-05-15 16:59] LABS: Carbon Dioxide 8 mmol/L (22-30)
[2022-05-15 17:18] LABS: Glucose,Whole Blood 203 mg/dL (70-110)
[2022-05-15 18:15] LABS: Glucose,Whole Blood 204 mg/dL (70-110)
[2022-05-15 19:06] LABS: Glucose,Whole Blood 179 mg/dL (70-110)
[2022-05-15 20:02] LABS: Glucose,Whole Blood 173 mg/dL (70-110)
[2022-05-15 21:09] LABS: Glucose,Whole Blood 163 mg/dL (70-110)
[2022-05-15 21:22] LABS: African American GFR (CKD) >90 (>60 ml/min/1.73 sqM); Anion Gap 11 mmol/L; Blood Urea Nitrogen 7 mg/dL (7-17); Calcium 7.8 mg/dL (8.4-10.2); Carbon Dioxide 13 mmol/L (22-30); Chloride 110 mmol/L (98-107); Glucose 165 mg/dL (74-99); Non-African American GFR(CKD) >90 (>60 ml/min/1.73 sqM); Sodium 134 mmol/L (137-145)
[2022-05-15 22:03] LABS: Glucose,Whole Blood 139 mg/dL (70-110)
[2022-05-15 23:16] LABS: Glucose,Whole Blood 134 mg/dL (70-110)
[2022-05-16 00:03] LABS: Glucose,Whole Blood 196 mg/dL (70-110)
[2022-05-16] MEDS: HEPARIN SODIUM,PORCINE/PF 5,000 UNIT/0.5 ML SYRINGE SQ SCH ×2 (00:40→08:13)
[2022-05-16] MEDS: D5-0.45% NACL WITH KCL 20MEQ/L 1,000 ML IV SCH ×2 (00:40→08:04)
[2022-05-16 01:19] LABS: African American GFR (CKD) >90 (>60 ml/min/1.73 sqM); Anion Gap 11 mmol/L; Blood Urea Nitrogen 6 mg/dL (7-17); Calcium 7.9 mg/dL (8.4-10.2); Carbon Dioxide 16 mmol/L (22-30); Chloride 108 mmol/L (98-107); Glucose 177 mg/dL (74-99); Magnesium 1.9 mg/dL (1.6-2.3); Non-African American GFR(CKD) >90 (>60 ml/min/1.73 sqM); Potassium 4.5 mmol/L (3.5-5.1); Sodium 135 mmol/L (137-145)
[2022-05-16 01:24] LABS: Glucose,Whole Blood 266 mg/dL (70-110)
[2022-05-16 01:50] LABS: Basophils # (A) 0.1 k/uL (0-0.2); Basophils % (A) 1 %; Eosinophils # (A) 0.1 k/uL (0-0.7); Eosinophils % (A) 1 %; HCT 38.9 % (34.0-46.0); HGB 14.2 gm/dL (11.4-16.0); Lymphocytes # (A) 2.1 k/uL (1.0-4.8); Lymphocytes % (A) 26 %; MCH 31.7 pg (25.0-35.0); MCHC 36.4 g/dL (31.0-37.0); Mean Platelet Volume 10.5; Monocytes # (A) 0.6 k/uL (0-1.0); Monocytes % (A) 7 %; Neutrophils % (A) 61 %; Platelet Count 259 k/uL (150-450); RBC 4.48 m/uL (3.80-5.40); RDW 12.7 % (11.5-15.5); WBC 8.1 k/uL (3.8-10.6)
[2022-05-16 02:06] LABS: Glucose,Whole Blood 254 mg/dL (70-110)
[2022-05-16 03:12] LABS: Glucose,Whole Blood 229 mg/dL (70-110)
[2022-05-16] MEDS: INSULIN REGULAR 100 UNIT in SODIUM CHLORIDE 0.9% 100 ML IV SCH (03:28)
[2022-05-16 04:01] LABS: Glucose,Whole Blood 183 mg/dL (70-110)
[2022-05-16 05:12] LABS: Glucose,Whole Blood 151 mg/dL (70-110)
[2022-05-16 05:34] LABS: Basophils % (A) 0 %; Eosinophils # (A) 0.1 k/uL (0-0.7); Eosinophils % (A) 1 %; HCT 38.6 % (34.0-46.0); HGB 13.1 gm/dL (11.4-16.0); Lymphocytes # (A) 1.7 k/uL (1.0-4.8); Lymphocytes % (A) 32 %; MCHC 33.8 g/dL (31.0-37.0); MCV 88.6 fL (80.0-100.0); Mean Platelet Volume 8.6; Monocytes # (A) 0.3 k/uL (0-1.0); Monocytes % (A) 6 %; Neutrophils # (A) 3.2 k/uL (1.3-7.7); Neutrophils % (A) 58 %; Platelet Count 268 k/uL (150-450); RBC 4.36 m/uL (3.80-5.40); RDW 12.4 % (11.5-15.5); WBC 5.4 k/uL (3.8-10.6)
[2022-05-16 05:44] LABS: African American GFR (CKD) >90 (>60 ml/min/1.73 sqM); Anion Gap 9 mmol/L; Blood Urea Nitrogen 4 mg/dL (7-17); Calcium 8.1 mg/dL (8.4-10.2); Carbon Dioxide 17 mmol/L (22-30); Chloride 111 mmol/L (98-107); Glucose 179 mg/dL (74-99); Magnesium 2.1 mg/dL (1.6-2.3); Non-African American GFR(CKD) >90 (>60 ml/min/1.73 sqM); Potassium 3.5 mmol/L (3.5-5.1); Sodium 137 mmol/L (137-145)
[2022-05-16] MEDS: POTASSIUM CHLORIDE ER 20 MEQ TAB.ER PO SCH ×2 (06:43→08:03)
[2022-05-16 06:46] LABS: Glucose,Whole Blood 138 mg/dL (70-110)
[2022-05-16 07:12] VITALS: RESP 13
[2022-05-16] MEDS: PANTOPRAZOLE 40 MG/10 ML VIAL IVP SCH (08:03)
[2022-05-16 08:09] LABS: Glucose,Whole Blood 113 mg/dL (70-110)
[2022-05-16 08:25] VITALS: BP 97/65; PULSE 88; TEMP 98.4
[2022-05-16] MEDS ORDERED: DEXTROSE 50% SYRINGE 50 ML IVP PRN ×2 (09:14)
[2022-05-16] MEDS ORDERED: SODIUM CHLORIDE 0.9% 1,000 ML IV SCH (09:30)
[2022-05-16] MEDS ORDERED: INSULIN DETEMIR (LEVEMIR) 100 UNIT/ML SYR SQ SCH (10:00)
--- NOTE | 2022-05-16 11:40 | P.PN ---
Subjective Progress Note Date: 05/16/22 Principal diagnosis: Acute diabetic ketoacidosis This is a 26-year-old female with history of type 1 diabetes, brought in yesterday to the emergency room with 24 hours history of nausea and vomiting. Patient has been unable to tolerate anything by mouth. For the last 24 hours. She was also complaining of being sore everywhere, blood sugar on admission was as high as 427, patient was also noted to have positive ketones in the urine, she had a significant anion gap metabolic acidosis, hence she was diagnosed with diabetic ketoacidosis, started on the protocol for DKA, and I was notified about this patient early this morning, and recommended admission to the ICU. Patient is now on insulin at 6.64 units per hour IV fluid 0.9 normal saline at 200 mL/h. Feeling a bit better compared to how she felt on her initial evaluation. However continues to have relatively low bicarb less than 5, and her anion gap apparently has not been closed. WBC count is 18.9 hemoglobin is 16.9 electrolytes on admission showed elevated potassium of 5.9 bicarb below 5 renal profile is normal, urinalysis showed 4+ glucose and 4+ ketones. Reevaluated today on 05/16/2022, patient is on insulin at 20 units per hour, she is also on D5 45 with 20 mEq of potassium at 150 ML per hour. Her anion gap has closed, patient is doing well, hence I plan to start the patient back on Levemir insulin, sliding scale insulin/NovoLog insulin, will change in either through 2.9 at 100 mL/h and change her diet to ADA diet. I plan to transfer the patient out of the ICU today to a regular medical floor. Patient is relatively asymptomatic, and she doing quite well. Objective - Vital Signs Vital signs: Vital Signs Temp 98.4 F 05/16/22 08:00 Pulse 88 05/16/22 08:00 Resp 13 05/16/22 08:00 BP 97/65 05/16/22 08:00 Pulse Ox 97 05/16/22 07:00 FiO2 Intake & Output 05/15/22 05/16/22 05/16/22 18:59 06:59 18:59 Intake Total 2002.204 2321.313 302.923 Output Total 200 1600 500 Balance 1593.955 261.313 -197.077 Weight 65.771 kg 65 kg Intake: IV 1650 300 D5-0.45% NaCl with KCl 1650 300 20Meq/l 1,000 ml @ 150 mls/hr IV .Q6H40M [facility] Rx# :[id number] Intake, IV Titration 1693.955 211.313 2.923 Amount D5-0.45% NaCl with KCl 1050 150 20Meq/l 1,000 ml @ 150 mls/hr IV .Q6H40M [facility] Rx# :[id number] Insulin Regular 100 unit 43.955 61.313 2.923 In Sodium Chloride 0.9% 100 ml @ 0.1 UNITS/KG/HR 6.643 mls/hr IV .[id number] [facility] Rx#:[id number] Sodium Chloride 0.9% 1, 600 000 ml @ 200 mls/hr IV . Q5H [facility] Rx#:[id number] Oral 100 Output: Urine 200 1600 500 Other: Voiding Method Bedside Commode Bedside Commode Bedside Commode # Voids 0 0 - Exam Physical Exam: Revealed a 26-year-old female in no distress Head: Atraumatic normocephalic. HEENT:[Neck is supple.] [No neck masses.] [No thyromegaly.] [No JVD.], Extremely dry mucous membranes Chest: [Clear throughout, no crackles, no rhonchi, no wheezes.] Cardiac Exam: [Normal S1 and S2, no S3 gallop, no murmur.] Abdomen: [Soft, nontender, no megaly, no rebound, no guarding, normal bowel sounds.] Extremities: [No clubbing, no edema, no cyanosis.] Neurological Exam: [No focal neurologic deficit.] Alert oriented 3 Psychiatric: Normal mood affect and normal mental status examination. Skin: No rashes Musculoskeletal: No deformities and no limitation in range of motion - Labs CBC & Chem 7: 05/16/22 04:32 05/16/22 04:32 Labs: Abnormal Lab Results - Last 24 Hours (Table) 05/15/22 05/15/22 05/15/22 Range/Units 11:51 11:51 13:36 Sodium (137-145) mmol/L Chloride 111 H (98-107) mmol/L Carbon Dioxide 6 L* (22-30) mmol/L BUN (7-17) mg/dL Creatinine (0.52-1.04) mg/dL Glucose 152 H (74-99) mg/dL POC Glucose (mg/dL) 173 H (70-110) mg/dL Calcium (8.4-10.2) mg/dL Phosphorus 2.1 L (2.5-4.5) mg/dL 05/15/22 05/15/22 05/15/22 Range/Units 14:06 15:17 15:58 Sodium (137-145) mmol/L Chloride (98-107) mmol/L Carbon Dioxide (22-30) mmol/L BUN (7-17) mg/dL Creatinine (0.52-1.04) mg/dL Glucose (74-99) mg/dL POC Glucose (mg/dL) 180 H 182 H 194 H (70-110) mg/dL Calcium (8.4-10.2) mg/dL Phosphorus (2.5-4.5) mg/dL 05/15/22 05/15/22 05/15/22 Range/Units 16:17 17:15 18:14 Sodium 136 L (137-145) mmol/L Chloride 112 H (98-107) mmol/L Carbon Dioxide 8 L* (22-30) mmol/L BUN (7-17) mg/dL Creatinine (0.52-1.04) mg/dL Glucose 180 H (74-99) mg/dL POC Glucose (mg/dL) 203 H 204 H (70-110) mg/dL Calcium 8.0 L (8.4-10.2) mg/dL Phosphorus 1.5 L (2.5-4.5) mg/dL 05/15/22 05/15/22 05/15/22 Range/Units 19:04 20:00 20:33 Sodium 134 L (137-145) mmol/L Chloride 110 H (98-107) mmol/L Carbon Dioxide 13 L (22-30) mmol/L BUN (7-17) mg/dL Creatinine 0.42 L (0.52-1.04) mg/dL Glucose 165 H (74-99) mg/dL POC Glucose (mg/dL) 179 H 173 H (70-110) mg/dL Calcium 7.8 L (8.4-10.2) mg/dL Phosphorus 2.0 L (2.5-4.5) mg/dL 05/15/22 05/15/22 05/15/22 Range/Units 21:08 22:01 23:14 Sodium (137-145) mmol/L Chloride (98-107) mmol/L Carbon Dioxide (22-30) mmol/L BUN (7-17) mg/dL Creatinine (0.52-1.04) mg/dL Glucose (74-99) mg/dL POC Glucose (mg/dL) 163 H 139 H 134 H (70-110) mg/dL Calcium (8.4-10.2) mg/dL Phosphorus (2.5-4.5) mg/dL 05/16/22 05/16/22 05/16/22 Range/Units 00:01 00:10 01:22 Sodium 135 L (137-145) mmol/L Chloride 108 H (98-107) mmol/L Carbon Dioxide 16 L (22-30) mmol/L BUN 6 L (7-17) mg/dL Creatinine (0.52-1.04) mg/dL Glucose 177 H (74-99) mg/dL POC Glucose (mg/dL) 196 H 266 H (70-110) mg/dL Calcium 7.9 L (8.4-10.2) mg/dL Phosphorus (2.5-4.5) mg/dL 05/16/22 05/16/22 05/16/22 Range/Units 02:05 03:10 04:00 Sodium (137-145) mmol/L Chloride (98-107) mmol/L Carbon Dioxide (22-30) mmol/L BUN (7-17) mg/dL Creatinine (0.52-1.04) mg/dL Glucose (74-99) mg/dL POC Glucose (mg/dL) 254 H 229 H 183 H (70-110) mg/dL Calcium (8.4-10.2) mg/dL Phosphorus (2.5-4.5) mg/dL 05/16/22 05/16/22 05/16/22 Range/Units 04:32 05:11 06:44 Sodium (137-145) mmol/L Chloride 111 H (98-107) mmol/L Carbon Dioxide 17 L (22-30) mmol/L BUN 4 L (7-17) mg/dL Creatinine 0.44 L (0.52-1.04) mg/dL Glucose 179 H (74-99) mg/dL POC Glucose (mg/dL) 151 H 138 H (70-110) mg/dL Calcium 8.1 L (8.4-10.2) mg/dL Phosphorus (2.5-4.5) mg/dL 05/16/22 Range/Units 08:07 Sodium (137-145) mmol/L Chloride (98-107) mmol/L Carbon Dioxide (22-30) mmol/L BUN (7-17) mg/dL Creatinine (0.52-1.04) mg/dL Glucose (74-99) mg/dL POC Glucose (mg/dL) 113 H (70-110) mg/dL Calcium (8.4-10.2) mg/dL Phosphorus (2.5-4.5) mg/dL Assessment and Plan Assessment: Impression: Acute diabetic ketoacidosis, resolved. Acute anion gap metabolic acidosis, resolved. Type 1 diabetes Nausea and emesis secondary to above, resolved. Recommendation: Change patient to long-acting insulin and NovoLog insulin Change patient to sliding scale as per protocol ADA diet 1800 nina Transfer patient out of the ICU to a regular medical floor Consider discharge planning by primary care physician anytime. We will continue to follow Time with Patient: Less than 30
[2022-05-16 11:41] LABS: Glucose,Whole Blood 168 mg/dL (70-110)
[2022-05-16] MEDS ORDERED: INSULIN ASPART (NovoLOG) 100 UNIT/ML VIAL SQ SCH (12:30)
[2022-05-16 13:05] VITALS: BMI 26.2
--- NOTE | 2022-05-17 12:24 | P.DS ---
Providers Date of admission: 05/15/22 06:46 Attending physician: Latricia Jauregui Consults: 05/15/22 06:46 Consult Physician Stat Consulting Provider: [place] Tobin Reason/Comments: DKA Do you want consulting provider notified?: Already Contacted Primary care physician: [facility] Hospital Course: Final Diagnosis Diabetic ketoacidosis requiring ICU management and insulin infusion Metabolic acidosis secondary to above Nausea and vomiting from DKA Neutrophilic leukocytosis Type 1 Diabetes Mellitus, uncontrolled with hemoglobin A1C of 10.1. History of noncompliance Former smoker Full Code Discharge Disposition Patient is stable for discharge home and recommend to resume on home insulin regimen of levemir 55 units with meal time novolog coverage. Patient is educated on importance of compliance with both long acting and scheduled meal time insulin to avoid hyperglycemia. Patient admits to forgetting to take her insulin at times. Patient recommend to follow up at the [facility] in 1 to 2 days. Patient also recommended to follow up closely with her fare collector Dr. Landry. Discussed the importance of following diabetic diet and patient states she is compliant with diet. Hospital Course This is a 26 year old female who is a type 1 diabetic diagnosed at age 10, follows with Dr. Landry outpatient, former smoker and reports history of asthma. Patient presents to the hospital with 2 day history of nausea, vomiting and poor oral intake. Patient also reports generalized weakness and fatigue and states she has been laying in bed for over 20 hours and reports feeling sore. Denies fever but reports feeling chills at home. No shortness of breath or chest pain reported. Denies diarrhea. Initial work up reveals EKG of sinus tachycardia with heart rate of 100, patient does have inverted T wave. White count of 18.9.Patient had blood sugar of 427 on admission and ketone positive. Patient has significant metabolic acidosis with anion gap unable to be resulted and bicarb of <5. Venous blood gas reveals critical pH of 6.99, critical bicard of 5. Patient was drowsy. Secondary to the severe metabolic acidosis patient required intensive care admission and was initiated on insulin gtt following the diabetic ketoacidosis protocol. On admission, patient had potassium of 5.9 which has improved to 4.7. Patient was monitored in intensive care unit on insulin gtt overnight. Patient was NPO. Patient did receive electrolyte supplementation for low potassium, magnesium and phosphorous. Patient had electrolytes monitored every 4 hours until resolution of DKA with closing of the anion gap. On 05/16/22 at 0400 patients labs show an anion gap of 9 and bicarb level of 17. Patient was transitioned off the insulin gtt to injectible insulin at home dosing and [place] was started on diet as tolerated. Patient encourage to ambulate and sit up at bedside for meal. Patient tolerated diet. Denying nausea, vomiting, or diarrhea. Reports that body aches and weakness have improved. Blood glucose was monitored and remains 130-160s. Hemoglobin A1C was found to be 10.1 and patient does admit to forgetting insulin dosing at times. Patient had quick recovery from DKA secondary to receiving basal insulin and following protocol to restore electrolytes and metabolic balance. White count has normalized with resolution of DKA also, viral panel was done for covid, influenza and RSV was negative. Urinalysis negative for infection. Patient has remained hemodynamically stable. Cleared for discharge home with close follow up. Judge has been following patient and has also cleared patient for discharge home. 05/16/2022 Patient evaluated today resting in bed. No acute complaints overnight. Morning labs done and anion gap has closed. Patient reports improvement in symptoms and would like to discharge home today. She is denying chest pain, no shortness of breath. No nausea, vomiting or diarrhea. She has been started on diet. Lungs are clear, S1 s2 auscultated and abdomen is soft and nontender.Patient is alert x 3 and focal neurological exam is negative. Patient will be discharged home and recommend close follow up with fare collector. Please see medication reconciliation for a list of current medication. Thank you for allowing us to participate in the care of this patient. The impression and plan of care has been dictated by Connie Schrader, Nurse Practitioner as directed. Dr. Juventino MD I have performed a history and physical examination and medical decision making of this patient, discussed the same with the dictator, and agree with the dictators assessment and plan as written, documented as a scribe. Based on total visit time, I have performed more than 50% of this visit. Patient Condition at Discharge: Stable Plan - Discharge Summary New Discharge Prescriptions: New Insulin Glargine,Hum.rec.anlog [Lantus Solostar Pen] 55 units SQ DAILY #2 each Albuterol Inhaler [Ventolin Hfa Inhaler] 1 puff INHALATION RT-QID PRN each PRN Reason: Shortness Of Breath Or Wheezing Continue Ergocalciferol [Vitamin D2 (1250 Mcg = 90802 Iu)] 1,250 mcg PO Q7D Insulin Aspart [NovoLOG Flexpen] See Protocol SQ AC-TID #2 each MDD 65 units Discontinued Insulin Glargine,Hum.rec.anlog [Lantus Solostar Pen] 55 unit SQ DAILY Discharge Medication List Ergocalciferol [Vitamin D2 (1250 Mcg = 28982 Iu)] 1,250 mcg PO Q7D 07/30/21 [History] Albuterol Inhaler [Ventolin Hfa Inhaler] 1 puff INHALATION RT-QID PRN each 05/16/22 [Rx] Insulin Aspart [NovoLOG Flexpen] See Protocol SQ AC-TID #2 each MDD 65 units 05/16/22 [Rx] Insulin Glargine,Hum.rec.anlog [Lantus Solostar Pen] 55 units SQ DAILY #2 each 05/16/22 [Rx] Follow up Appointment(s)/Referral(s): Heron Landry MD [REFERRING] - 3 Days [facility] [Primary Care Provider] - 1-2 days Activity/Diet/Wound Care/Special Instructions: Continue same home insulin regimen. Do not skip doses and recommend close follow up with Dr. Landry. Discharge Disposition: HOME SELF-CARE
== END 2022-05-16 14:09 | disposition home or self-care (01) | DRG 420 ==
LOC: EC 05:05 → 2SICU 06:46
PROVIDERS: ADMIT Internal Medicine; ATTEND Internal Medicine
DX: E10.10 Type 1 diabetes mellitus with ketoacidosis without coma (principal); D72.829 Elevated white blood cell count, unspecified; T38.3X6A Underdosing of insulin and oral hypoglycemic [antidiabetic] drugs, initial encounter; J45.909 Unspecified asthma, uncomplicated; Z20.822 Contact with and (suspected) exposure to COVID-19; Z91.138 Patient's unintentional underdosing of medication regimen for other reason; Z79.4 Long term (current) use of insulin; Z87.891 Personal history of nicotine dependence
CPT/HCPCS: 36415; 80048; 80051; 80053; 81001; 81025; 82565; 82803; 82947; 83036; 83690; 83735; 84100; 84520; 85025; 87636; 93005; 96361; 96374; 99285

== ENCOUNTER 2023-08-21 16:52 | Emergency (ER) | payer OTHER ==
[2023-08-21 17:10] VITALS: RESP 18
--- NOTE | 2023-08-21 18:25 | XR ---
EXAMINATION TYPE: XR knee complete LT DATE OF EXAM: 08/21/2023 6:20 PM CLINICAL INDICATION:Female, 27 years old with history of fall; [facility] COMPARISON: None. TECHNIQUE: XR knee complete LT; examined in Frontal, lateral and oblique projections. FINDINGS: No evidence of any acute osseous pathology, soft tissue swelling, or joint effusion is no moises. IMPRESSION: 1. No acute osseous pathology.
--- NOTE | 2023-08-21 19:10 | ED ---
Lower Extremity Injury HPI - General Chief Complaint: Extremity Injury, Lower Stated Complaint: L Knee pain Time Seen by Provider: 08/21/23 19:08 Source: patient, RN notes reviewed Mode of arrival: ambulatory Limitations: no limitations - History of Present Illness Initial Comments: 27-year-old female presented to the ER with chief complaint of fall. Patient states on Saturday night, 08-17-2023, she accidentally tripped and fell on the sidewalk. She states she landed on her left knee. She denies any head injury or loss of consciousness. She reports she has been keeping the area clean and dry but is concerned of a possible infection as she noticed surrounding erythema to the abrasion on her left calf. Tetanus up-to-date. 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 She denies any fevers, chills, chest pain, shortness of breath, abdominal pain or other injuries. - Related Data Home Medications Medication Instructions Recorded Confirmed Ergocalciferol [Vitamin D2 (1250 1,250 mcg PO Q7D 07/30/21 05/15/22 Mcg = 69963 Iu)] Previous Rx's Medication Instructions Recorded Albuterol Inhaler [Ventolin Hfa 1 puff INHALATION RT-QID PRN each 05/16/22 Inhaler] Insulin Aspart [NovoLOG Flexpen] See Protocol SQ AC-TID #2 each MDD 05/16/22 65 units Insulin Glargine,Hum.rec.anlog 55 units SQ DAILY #2 each 05/16/22 [Lantus Solostar Pen] Allergies Allergy/AdvReac Type Severity Reaction Status Date / Time No Known Allergies Allergy Verified 08/21/23 17:09 Review of Systems ROS Statement: Those systems with pertinent positive or pertinent negative responses have been documented in the HPI. ROS Other: All systems not noted in ROS Statement are negative. Past Medical History Past Medical History: Diabetes Mellitus History of Any Multi-Drug Resistant Organisms: None Reported Past Surgical History: Appendectomy Past Psychological History: No Psychological Hx Reported Smoking Status: Current some day smoker Past Alcohol Use History: Occasional Past Drug Use History: Marijuana General Exam Limitations: no limitations General appearance: alert, in no apparent distress Neck exam: Present: normal inspection. Absent: tenderness, meningismus, lymphadenopathy Respiratory exam: Present: normal lung sounds bilaterally. Absent: respiratory distress, wheezes, rales, rhonchi, stridor Cardiovascular Exam: Present: regular rate, normal rhythm, normal heart sounds. Absent: systolic murmur, diastolic murmur, rubs, gallop, clicks Extremities exam: Present: normal inspection, full ROM, normal capillary refill, other (abrasion to left calf no surrounding erythema or purulent drainage). Absent: tenderness, pedal edema, joint swelling, calf tenderness Back exam: Present: normal inspection Neurological exam: Present: alert, oriented X3, CN II-XII intact Skin exam: Present: warm, dry, intact, normal color. Absent: rash Course Vital Signs 08/21/23 08/21/23 17:07 19:42 Temperature 97.4 F L 97.8 F Pulse Rate 90 86 Respiratory 18 18 Rate Blood Pressure 143/82 132/79 O2 Sat by Pulse 99 99 Oximetry Medical Decision Making - Medical Decision Making Was pt. sent in by a medical professional or institution (, PA, EARLY CHILDHOOD TEACHER ASSISTANT, urgent care, hospital, or long term...) When possible be specific @ -No Did you speak to anyone other than the patient for history (EMS, parent, family, police, friend...)? What history was obtained from this source @ -No Did you review nursing and triage notes (agree or disagree)? Why? @ -I reviewed and agree with nursing and triage notes Were old charts reviewed (outside hosp., previous admission, EMS record, old EKG, old radiological studies, urgent care reports/EKG's, long term records)? Report findings @ -No old charts were reviewed Differential Diagnosis (chest pain, altered mental status, abdominal pain women, abdominal pain men, vaginal bleeding, weakness, fever, dyspnea, syncope, headache, dizziness, GI bleed, back pain, seizure, CVA, palpatations, mental health, musculoskeletal)? @ -Differential Musculoskeletal Muscular strain, contusion, ligament sprain, fracture, arthritis, septic arthritis, bursitis, cellulitis, muscle spasm, nerve compression, DVT, arterial occlusion, herpes zoster, electrolyte abnormality, tumor.... This is not meant to be in all inclusive list EKG interpreted by me (3pts min.). @ -None X-rays interpreted by me (1pt min.). @ -Left knee x-ray interpreted by me negative for acute osseous process CT interpreted by me (1pt min.). @ -None done U/S interpreted by me (1pt. min.). @ -None done What testing was considered but not performed or refused? (CT, X-rays, U/S, labs)? Why? @ -None What meds were considered but not given or refused? Why? @ -Patient refused analgesic medications. Did you discuss the management of the patient with other professionals (professionals i.e. DrFlako, PA, EARLY CHILDHOOD TEACHER ASSISTANT, lab, RT, psych nurse, social insurance analyst, inker and opaquer, teacher, corporate compliance officer, case planner)? Give summary @ -No Was smoking cessation discussed for >3mins.? @ -No Was critical care preformed (if so, how long)? @ -No Were there social determinants of health that impacted care today? How? (Homelessness, low income, unemployed, alcoholism, drug addiction, transportation, low edu. Level, literacy, decrease access to med. care, prison, rehab)? @ -No Was there de-escalation of care discussed even if they declined (Discuss DNR or withdrawal of care, Hospice)? DNR status @ -No What co-morbidities impacted this encounter? (DM, HTN, Smoking, COPD, CAD, Cancer, CVA, ARF, Chemo, Hep., AIDS, mental health diagnosis, sleep apnea, morbid obesity)? @ -Diabetes Was patient admitted / discharged? Hospital course, mention meds given and route, prescriptions, significant lab abnormalities, going to OR and other pertinent info. @ -Discharge. 27-year-old female presented to ER with a chief complaint of a fall. History and physical exam completed. Vitals stable. Patient no signs acute distress and nontoxic-appearing. Left lower extremity neurovascular intact. There was a superficial abrasion to left calf. No surrounding erythema or purulent drainage concerning of infection. X-rays obtained of left knee negative for acute process. Tetanus is UTD. Upon reevaluation, patient resting comfortably in exam room no signs of acute distress, x-ray results discussed with patient, all questions answered. Advise close follow-up with PCP. Return parameters discussed. Patient discharged in stable condition. Patient verbally questions seemingly regarding. Case discussed with ED attending, Dr. Fowler. Undiagnosed new problem with uncertain prognosis? @ -No Drug Therapy requiring intensive monitoring for toxicity (Heparin, Nitro, Insulin, Cardizem)? @ -No Were any procedures done? @ -No Diagnosis/symptom? @ -Abrasion/fall Acute, or Chronic, or Acute on Chronic? @ -Acute Uncomplicated (without systemic symptoms) or Complicated (systemic symptoms)? @ -Uncomplicated Side effects of treatment? @ -No Exacerbation, Progression, or Severe Exacerbation? @ -No Poses a threat to life or bodily function? How? (Chest pain, [place], [place], pneumonia, PE, COPD, DKA, ARF, appy, cholecystitis, CVA, Diverticulitis, Homicidal, Suicidal, threat to staff... and all critical care pts) @ -No - Radiology Data Radiology results: report reviewed, image reviewed Disposition Clinical Impression: Abrasion, Fall Disposition: HOME SELF-CARE Condition: Stable Instructions (If sedation given, give patient instructions): Abrasion (ED) Additional Instructions: Follow-up with primary care physician. Return to the ER for any new or worsening concerns. Is patient prescribed a controlled substance at d/c from ED?: No Referrals: [facility] [Primary Care Provider] - 1-2 days Time of Disposition: 19:21
[2023-08-21 19:44] VITALS: BP 132/79; PULSE 86; TEMP 97.8
== END 2023-08-21 19:44 | disposition home or self-care (01) ==
LOC: EC 16:52
DX: S80.812A Abrasion, left lower leg, initial encounter (principal); E11.9 Type 2 diabetes mellitus without complications; F17.200 Nicotine dependence, unspecified, uncomplicated; W01.0XXA Fall on same level from slipping, tripping and stumbling without subsequent striking against object, initial encounter; Y92.480 Sidewalk as the place of occurrence of the external cause
CPT/HCPCS: 99283